=== PATIENT | male | born 1975 | race Caucasian/White ===

== ENCOUNTER 2017-02-02 06:28 | Emergency (ER) | payer OTHER ==
[2017-02-02 06:37] VITALS: TEMP 97.6; BMI 57.1
--- NOTE | 2017-02-02 07:01 | PDOC ---
History of Present Illness - General Chief Complaint: Rectal Bleed Stated Complaint: RECTAL BLEEDING ALCOHOL INTOX Time Seen by Provider: 02/02/17 06:52 - History of Present Illness Initial Comments: 02/02/17 06:56 Brought in by , intoxicated, c/o rectal bleeding. left prior to my exam. Patient poor historian. Admits to etoh use. HAs had colonoscopy before. Unable to provide details. pmh: alcoholism fhx: noncontrib OE NAD no diaphoresis nonicteric no facial trauma neck nontender RRR cta abd nontender rectal-dried blood + internal hemorrhoid no exteremity tenderness a.p acute intoxication LGIB check labs observe in ED until sober Past History - Past Medical History Allergies/Adverse Reactions: Allergies Allergy/AdvReac Type Severity Reaction Status Date / Time No Known Allergies Allergy Verified 02/02/17 06:30 Home Medications: Ambulatory Orders Ferrous Sulfate [Feosol] 325 mg PO TIDCM #90 ud 11/12/15 Anemia: Yes COPD: No GI Disorders: Yes (gi bleeding) - Suicide/Smoking/Psychosocial Hx Smoking History: Former smoker Have you smoked in the past 12 months: No If you are a former smoker, when did you quit?: 2006 Information on smoking cessation initiated: No Hx Alcohol Use: Yes (DAILY) Drug/Substance Use Hx: No Substance Use Type: Alcohol Hx Substance Use Treatment: No *Physical Exam - Vital Signs Last Vital Signs Temp Pulse Resp BP Pulse Ox 97.6 F 109 H 18 131/92 98 02/02/17 06:32 02/02/17 06:32 02/02/17 06:32 02/02/17 06:32 02/02/17 06:32 *DC/Admit/Observation/Transfer Diagnosis at time of Disposition: Alcoholism - Discharge Dispostion Condition at time of disposition: Stable - Referrals Referrals: Juan Alvarado MD [Primary Care Provider] - - Patient Instructions - Post Discharge Activity
[2017-02-02 07:38] LABS: ALBUMIN 4.8 g/dl (3.5-5.0); ALK PHOS 112 U/L (32-92); ANION GAP 14 (8-16); BILIRUBIN,TOTAL 0.5 mg/dl (0.2-1.0); CALCIUM 9.1 mg/dl (8.4-10.2); CO2 29 mmol/L (22-28); CREATININE 0.6 mg/dl (0.6-1.3); GLUCOSE,RANDOM 114 mg/dl (74-106); SGOT/AST 157 U/L (10-42); SGPT/ALT 147 U/L (10-40); TOT PROT 8.9 g/dl (6.4-8.3)
[2017-02-02 08:02] LABS: MCH 22.6 pg (25.7-33.7); MCHC 30.8 g/dl (32.0-35.9); MEAN CELL VOLUME 73.4 fl (80-96); MEAN PLT VOLUME 7.9 fl (7.5-11.1); PLATELET COUNT 531 K/MM3 (134-434); RDW 23.1 % (11.9-15.9); WHITE BLOOD COUNT 6.1 K/mm3 (4.0-10.8)
[2017-02-02 08:26] LABS: INR 1.21 (0.82-1.09); PROTHROMBIN TIME (PATIENT) 13.5 SEC (10.2-13.0)
[2017-02-02 13:17] VITALS: BP 129/64; PULSE 98
--- NOTE | 2017-02-02 13:20 | PDOC ---
*Physical Exam - Vital Signs Last Vital Signs Temp Pulse Resp BP Pulse Ox 97.6 F 82 18 115/75 98 02/02/17 06:32 02/02/17 09:25 02/02/17 06:32 02/02/17 09:25 02/02/17 06:32 ED Treatment Course - LABORATORY CBC & Chemistry Diagram: 02/02/17 07:00 02/02/17 07:00 - ADDITIONAL ORDERS Additional order review: Laboratory Results 02/02/17 02/02/17 02/02/17 07:30 07:30 07:00 PT with INR 13.5 H INR 1.21 Sodium Potassium Chloride Carbon Dioxide Anion Gap BUN Creatinine Creat Clearance w eGFR Random Glucose Calcium Total Bilirubin AST ALT Alkaline Phosphatase Total Protein Albumin Alcohol, Quantitative 453.4 H* Blood Type Cancelled Antibody Screen Cancelled Spec Expiration Date Cancelled 02/02/17 07:00 PT with INR INR Sodium 143 Potassium 3.5 Chloride 100 Carbon Dioxide 29 H D Anion Gap 14 BUN 8 D Creatinine 0.6 Creat Clearance w eGFR > 60 Random Glucose 114 H Calcium 9.1 Total Bilirubin 0.5 D AST 157 H ALT 147 H D Alkaline Phosphatase 112 H Total Protein 8.9 H D Albumin 4.8 D Alcohol, Quantitative Blood Type Antibody Screen Spec Expiration Date 02/02/17 07:00 RBC 4.92 D MCV 73.4 L MCHC 30.8 L RDW 23.1 H MPV 7.9 Neutrophils % No Result Required. Lymphocytes % No Result Required. Medical Decision Making - Medical Decision Making 02/02/17 13:09 Sign-out received from outgoing Emergency Physician Dr. Baig Pt interviewed and examined Ancillary studies reviewed Case discussed in detail with oncoming Emergency Physician including history, physical exam and ancillary studies. Vital Signs Temp Pulse Resp BP Pulse Ox 97.6 F 82 18 115/75 98 02/02/17 06:32 02/02/17 09:25 02/02/17 06:32 02/02/17 09:25 02/02/17 06:32 CBC, BMP 02/02/17 07:00 02/02/17 07:00 CMP Sodium 143 mmol/L (136-145) 02/02/17 07:00 Potassium 3.5 mmol/L (3.5-5.1) 02/02/17 07:00 Chloride 100 mmol/L (98-107) 02/02/17 07:00 Carbon Dioxide 29 mmol/L (22-28) H D 02/02/17 07:00 Anion Gap 14 (8-16) 02/02/17 07:00 BUN 8 mg/dl (7-18) D 02/02/17 07:00 Creatinine 0.6 mg/dl (0.6-1.3) 02/02/17 07:00 Creat Clearance w eGFR > 60 (>60) 02/02/17 07:00 Random Glucose 114 mg/dl (74-106) H 02/02/17 07:00 Calcium 9.1 mg/dl (8.4-10.2) 02/02/17 07:00 Total Bilirubin 0.5 mg/dl (0.2-1.0) D 02/02/17 07:00 AST 157 U/L (10-42) H 02/02/17 07:00 ALT 147 U/L (10-40) H D 02/02/17 07:00 Alkaline Phosphatase 112 U/L (32-92) H 02/02/17 07:00 Total Protein 8.9 g/dl (6.4-8.3) H D 02/02/17 07:00 Albumin 4.8 g/dl (3.5-5.0) D 02/02/17 07:00 I received signout from this patient Dr. Baig for patient was seen in the ED for rectal bleeding. Noted to have hemorrhoids at that time. Patient had drank significantly with elevated alcohol level 450s. Patient has been observed for approximately 7 hours. Was signed out patient likely with internal hemorrhoids. I spoke to the patient when he was sober and he states that yesterday night he has had a bowel movement with blood in it area he has had prior blood chest fusion setting of GI bleeds. He's had years of GI bleeding in the past and had seen Dr. Alvarado. 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 Alvarado reported the patient had a colonoscopy and endoscopy 2014. I had updated the doctor on the situation of the patient. The patient is now ambulatory without difficulty. I advised patient that he should follow-up with his antique dealer. He is requesting a new primary care physician which I will give him one. I'll prescribe him Colace and Preparation H and sitz bath. I discussed the physical exam findings, ancillary test results and final diagnoses with the patient. I answered all of the patient's questions. The patient was satisfied with the care received and felt comfortable with the discharge plan and treatment plan. The patient will call their primary care physician within 24 hours to arrange follow-up and will return to the Emergency Department with any new, persistant or worsening symptoms. *DC/Admit/Observation/Transfer Diagnosis at time of Disposition: Alcoholism, Rectal bleeding - Discharge Dispostion Disposition: HOME Condition at time of disposition: Stable Admit: No - Prescriptions Prescriptions: Docusate Sodium [Colace -] 100 mg PO TID #21 capsule Phenyleph/Mineral Oil/Petrolat [Preparation H Ointment] 1 applic RC BID #1 oint - Referrals Referrals: Juan Alvarado MD [Staff Physician] - Robert Patel MD [Staff Physician] - - Patient Instructions Printed Discharge Instructions: DI for Hemorrhoids, DI for Rectal Bleeding Additional Instructions: Please follow up with your doctors. Call to schedule an appointment. Your hemoglobin levels are 11.1 today. - Post Discharge Activity Forms/Work/School Notes: Back to Work
[2017-02-02 15:32] LABS: ANISOCYTOSIS 3+; HYPOCHROMIA 1+; MICROCYTOSIS 1+
[2017-02-02 15:33] LABS: MACROCYTOSIS 1+; OVALOCYTE 1+; PLATELET COMMENTS RARE GIANT PLTS; PLATELET ESTIMATE MOD INCREASED; SPHEROCYTE 1+; TARGET CELLS 1+; TEAR DROP CELLS 1+
[2017-02-03 18:39] LABS: REACTIVE LYMPHOCYTES 28 % (0-80)
== END 2017-02-02 13:25 | disposition home or self-care (01) ==
LOC: SUPCPDRO 06:28 → FER 06:28
DX: F10.220 Alcohol dependence with intoxication, uncomplicated (principal); Y90.8 Blood alcohol level of 240 mg/100 ml or more; K64.8 Other hemorrhoids
CPT/HCPCS: 36415; 80053; 80307; 85025; 85610; 99282-25

== ENCOUNTER 2017-06-17 11:52 | Inpatient (IN) | payer OTHER ==
[2017-06-17 13:36] VITALS: BMI 29.2
--- NOTE | 2017-06-17 14:20 | HP ---
CIWA Score - CIWA Score Nausea/Vomitin-No Nausea/No Vomiting Muscle Tremors: 5 Anxiety: 4-Mod. Anxious/Guarded Agitation: 5 Paroxysmal Sweats: 1-Minimal Palms Moist Orientation: 0-Oriented Tacttile Disturbances: 2-Mild Itch/Numbness/Burn Auditory Disturbances: 0-None Visual Disturbances: 0-None Headache: 2-Mild CIWA-Ar Total Score: 19 Admission ROS BHS - HPI Chief Complaint: withdrawal sx Allergies/Adverse Reactions: Allergies Allergy/AdvReac Type Severity Reaction Status Date / Time No Known Allergies Allergy Verified 06/17/17 14:17 History of Present Illness: 41 years old male with long history of alcohol dependence has gerd gi ulcer anemia and depression admitted to detox Exam Limitations: No Limitations - Ebola screening Have you traveled outside of the country in the last 21 days: No Have you had contact with anyone from an Ebola affected area: No Have you been sick,other than usual withdrawal symptoms: No Do you have a fever: No - Review of Systems Constitutional: Changes in sleep, Weight Stable EENT: reports: Blurred Vision (eye glasses) Respiratory: reports: No Symptoms reported Cardiac: reports: No Symptoms Reported GI: reports: Diarrhea (early today), Nausea, Poor Fluid Intake, Indigestion, Abdominal cramping : reports: No Symptoms Reported Musculoskeletal: reports: No Symptoms Reported Integumentary: reports: No Symptoms Reported Neuro: reports: Tremors Endocrine: reports: No Symptoms Reported Hematology: reports: No Symptoms Reported Psychiatric: reports: Judgement Intact, Orientated x3, Depressed Other Systems: Reviewed and Negative Patient History - Patient Medical History Hx Anemia: Yes Hx Asthma: No Hx Chronic Obstructive Pulmonary Disease (COPD): No Hx Cancer: No Hx Cardiac Disorders: No Hx Congestive Heart Failure: No Hx Hypertension: No Hx Hypercholesterolemia: No Hx Pacemaker: No HX Cerebrovascular Accident: No Hx Seizures: No Hx Dementia: No Hx Diabetes: No Hx Gastrointestinal Disorders: Yes (gi bleeding, gastritis, hemmorhoids, colonic polyps) Hx Liver Disease: No Hx Genitourinary Disorders: No Hx Sexually Transmitted Disorders: No Hx Renal Disease (ESRD): No Hx Thyroid Disease: No Hx Human Immunodeficiency Virus (HIV): No Hx Hepatitis C: No Hx Depression: Yes Hx Suicide Attempt: No Hx Bipolar Disorder: No Hx Schizophrenia: No - Patient Surgical History Past Surgical History: No - Smoking Cessation Smoking history: Former smoker Have you smoked in the past 12 months: No If you are a former smoker, when did you quit?: 2006 Hx Chewing Tobacco Use: No Initiated information on smoking cessation: No - Substance & Tx. History Hx Alcohol Use: Yes Hx Substance Use: No Substance Use Type: Alcohol Hx Substance Use Treatment: No (first detox) - Substances Abused Alcohol Route: Oral Frequency: Daily Amount used: mara ulloa Age of first use: 17 Date of Last Use: 06/17/17 Family Disease History - Family Disease History Family Disease History: Diabetes: Father (), Other: Father Admission Physical Exam [facility] - Vital Signs Vital Signs: Vital Signs - 24 hr 06/17/17 13:35 Temperature 98.7 F Pulse Rate 84 Respiratory 18 Rate Blood Pressure 127/73 - Physical General Appearance: Yes: Nourished, Appropriately Dressed, Moderate Distress, Tremorous, Irritable, Sweating, Anxious HEENTM: Yes: Hearing grossly Normal, Normal ENT Inspection, Normocephalic, Normal Voice, Other (eye glasses) Respiratory: Yes: Chest Non-Tender, Lungs Clear, Normal Breath Sounds, No Respiratory Distress, No Accessory Muscle Use Neck: Yes: Supple, Trachea in good position Breast: Yes: Breasts Symetrical Cardiology: Yes: Regular Rhythm, Regular Rate, S1, S2 Abdominal: Yes: Non Tender, Soft, Increased Bowel Sounds Genitourinary: Yes: Within Normal Limits Back: Yes: Normal Inspection Musculoskeletal: Yes: full range of Motion, Gait Steady Extremities: Yes: Normal Inspection, Normal Range of Motion, Non-Tender, Tremors Neurological: Yes: Fully Oriented, Alert, Motor Strength 5/5, Normal Response, Depressed Affect Integumentary: Yes: Warm Lymphatic: Yes: Within Normal Limits - Diagnostic (1) History of gingival bleeding Current Visit: Yes Status: Chronic (2) Alcohol dependence with uncomplicated withdrawal Current Visit: Yes Status: Acute (3) Anemia Current Visit: No Status: Chronic Qualifiers: Anemia type: iron deficiency Iron deficiency anemia type: inadequate dietary iron intake Qualified Code(s): D50.8 - Other iron deficiency anemias Comment: lab pending (4) Depression (emotion) Current Visit: Yes Status: Suspected Qualifiers: Depression Type: dysthymia Qualified Code(s): F34.1 - Dysthymic disorder Cleared for Admission [facility] - Detox or Rehab [facility] Level of Care: Medically Managed Detox Regimen/Protocol: Librium [facility] Breath Alcohol Content Breath Alcohol Content: 0.056 Urine Drug Screen - Control Is Test Valid: Yes - Results Drug Screen Negative: No Urine Drug Screen Results: BZO-Benzodiazepines
[2017-06-17] MEDS ORDERED: LOPERAMIDE HCL 2 MG CAPSULE PO PRN (14:34)
[2017-06-17] MEDS ORDERED: MENTHOL/PHENOL 1 EACH UD MM PRN (14:34)
[2017-06-17] MEDS ORDERED: chlordiazePOXIDE HCL 25 MG CAPSULE PO PRN (14:34)
[2017-06-17] MEDS ORDERED: P-EPHED 60MG/TRIPROLIDI 2.5MG TABLET PO PRN (14:34)
[2017-06-17] MEDS ORDERED: MAG HYDROX/AL HYDROX/SIMETH 30 ML UNIT-DOSE CUP PO PRN (14:34)
[2017-06-17] MEDS ORDERED: MAGNESIUM CITRATE 300 ML BOTTLE PO PRN (14:34)
[2017-06-17] MEDS ORDERED: guaiFENesin/D-METHORPHAN HB 10 ML UNIT-DOSE CUPS PO PRN (14:34)
[2017-06-17] MEDS ORDERED: MAGNESIUM HYDROX 2400MG/30ML ORAL SUSPENSION 30 ML CUP PO PRN (14:34)
[2017-06-17] MEDS ORDERED: chlordiazePOXIDE HCL 25 MG CAPSULE PO ONE (16:15)
--- NOTE | 2017-06-17 17:26 | CONSULT ---
[facility] Psychiatric Consult - Data Date of interview: 06/17/17 Admission source: [facility] Identifying data: First admission to [facility] for this 41 y/o [place]-born male seeking detox treatment on for alcohol dependence.Patient is ,a father of one,domiciled,currrently unemployed and supported by his spouse. Substance Abuse History: Confirmed by patient in this session.Details in current [facility] report : Smoking history: Former smoker. Have you smoked in the past 12 months: No. If you are a former smoker, when did you quit?: 2006. Hx Chewing Tobacco Use: No. Initiated information on smoking cessation: No. - Substance & Tx. History. Hx Alcohol Use: Yes. Hx Substance Use: No. Substance Use Type: Alcohol. Hx Substance Use Treatment: No (first detox). - Substances Abused. Alcohol. Route: Oral. Frequency: Daily. Amount used: pint voka. Age of first use: 17. Date of Last Use: 06/17/17 Medical History: Anemia,GERD,colonic polyps,gastritis and hemorrhoids. Psychiatric History: Patient denies history of mental illness or psychiatric hospitalizations.No prior exposure to psychotropic medications. Physical/Sexual Abuse/Trauma History: Patient denies history of abuse.Distressed by his recent arrest (for alcohol intoxication).Occurred on 06/16. Additional Comment: Urine Drug Screen Results: BZO-Benzodiazepines.Noted. Mental Status Exam - Mental Status Exam Alert and Oriented to: Time, Place, Person Cognitive Function: Good Patient Appearance: Well Groomed (short stature) Mood: Nervous, Withdrawn, Anxious Affect: Mood Congruent, Constricted Patient Behavior: Fatigued, Appropriate, Cooperative Speech Pattern: Clear (bilingual) Voice Loudness: Normal Thought Process: Goal Oriented Thought Disorder: Not Present Hallucinations: Denies Suicidal Ideation: Denies Homicidal Ideation: Denies Insight/Judgement: Poor Sleep: Fair Appetite: Good Muscle strength/Tone: Normal Gait/Station: Normal Psychiatric Findings - Problem List ([place] 1, 2,3) (1) Alcohol dependence with uncomplicated withdrawal Current Visit: Yes Status: Acute - Initial Treatment Plan Initial Treatment Plan: Psychoeducation.Orientation to unit.Detoxification initiated.Observation.
[2017-06-17] MEDS: ACETAMINOPHEN 325 MG TABLET (FP) PO PRN (17:40)
[2017-06-17] MEDS ORDERED: MELATONIN 5 MG TABLETS PO PRN (22:00)
[2017-06-17] MEDS: RANITIDINE HCL 150 MG TABLET (FP) PO SCH (22:21)
[2017-06-17] MEDS: chlordiazePOXIDE HCL 25 MG CAPSULE PO SCH (22:21)
[2017-06-17] MEDS: THIAMINE HCL 100 MG TABLET (FP) PO SCH (22:21)
[2017-06-17 22:54] LABS: URINE APPEARANCE CLEAR; URINE BILIRUBIN NEGATIVE (<2.0 mg/dL); URINE BLOOD NEGATIVE (NEGATIVE); URINE COLOR YELLOW; URINE GLUCOSE (UA) NEGATIVE (NEGATIVE); URINE KETONE TRACE (NEGATIVE); URINE LEUK ESTERASE NEGATIVE (NEGATIVE); URINE NITRITE NEGATIVE (NEGATIVE); URINE PROTEIN 1+ (NEGATIVE); URINE UROBILINOGEN 4.0 E.U/dl mg/dL (0.2-1.0)
[2017-06-17 22:55] LABS: URINE BACTERIA RARE /hpf (NONE SEEN); URINE MUCUS FEW
[2017-06-18] MEDS: chlordiazePOXIDE HCL 25 MG CAPSULE PO SCH ×4 (05:05→22:14)
[2017-06-18] MEDS: ACETAMINOPHEN 325 MG TABLET (FP) PO PRN ×2 (05:06→10:17)
[2017-06-18] MEDS: PRENATAL VITAMINS W/ FOLIC ACID TABLET (FP) PO SCH (10:14)
[2017-06-18] MEDS: RANITIDINE HCL 150 MG TABLET (FP) PO SCH ×2 (10:14→22:13)
[2017-06-18 10:18] LABS: HEMATOCRIT 38.5 % (35.4-49); HEMOGLOBIN 12.4 GM/dL (11.7-16.9); MCH 26.4 pg (25.7-33.7); MCHC 32.3 g/dl (32.0-35.9); MEAN CELL VOLUME 81.6 fl (80-96); MEAN PLT VOLUME 8.4 fl (7.5-11.1); PLATELET COUNT 367 K/MM3 (134-434); RBC 4.72 M/mm3 (4.00-5.60); RDW 16.6 % (11.9-15.9); WHITE BLOOD COUNT 4.2 K/mm3 (4.0-10.0)
[2017-06-18 11:00] LABS: ALBUMIN 3.8 g/dl (3.4-5.0); ANION GAP 13 (8-16); BLOOD UREA NITROGEN 5 mg/dL (7-18); CALCIUM 8.9 mg/dL (8.5-10.1); CHLORIDE 100 mmol/L (98-107); CO2 27 mmol/L (21-32); GLUCOSE,RANDOM 91 mg/dL (74-106); POTASSIUM 4.2 mmol/L (3.5-5.1); SODIUM 140 mmol/L (136-145)
--- NOTE | 2017-06-18 11:07 | EKG ---
Test Reason : Blood Pressure : / mmHG Vent. Rate : 070 BPM Atrial Rate : 070 BPM P-R Int : 130 ms QRS Dur : 096 ms QT Int : 430 ms P-R-T Axes : 034 012 018 degrees QTc Int : 464 ms NORMAL SINUS RHYTHM NORMAL ECG WHEN COMPARED WITH ECG OF 17-JUN-2017 17:53, NO SIGNIFICANT CHANGE WAS FOUND Confirmed by EAN DASILVA MD ([id number]) on 06/18/2017 11:07:14 AM Referred By: Confirmed By:EAN DASILVA MD
--- NOTE | 2017-06-18 11:08 | EKG ---
Test Reason : Blood Pressure : / mmHG Vent. Rate : 085 BPM Atrial Rate : 085 BPM P-R Int : 130 ms QRS Dur : 098 ms QT Int : 404 ms P-R-T Axes : 031 011 026 degrees QTc Int : 480 ms NORMAL SINUS RHYTHM MINIMAL VOLTAGE CRITERIA FOR LVH, MAY BE NORMAL VARIANT PROLONGED QT ABNORMAL ECG NO PREVIOUS ECGS AVAILABLE Confirmed by EAN DASILVA MD ([id number]) on 06/18/2017 11:08:26 AM Referred By: Confirmed By:EAN DASILVA MD
[2017-06-18 11:11] LABS: ALK PHOS 105 U/L (45-117); CREATININE 0.6 mg/dL (0.7-1.3); SGOT/AST 61 U/L (15-37); SGPT/ALT 79 U/L (12-78); TOT PROT 7.8 g/dl (6.4-8.2)
--- NOTE | 2017-06-18 14:59 | PN ---
S CIWA - CIWA Score Nausea/Vomitin-No Nausea/No Vomiting Muscle Tremors: 4-Moderate,w/Arms Extend Anxiety: 4-Mod. Anxious/Guarded Agitation: 1-Slight > Activity Paroxysmal Sweats: 3 Orientation: 0-Oriented Tacttile Disturbances: 0-None Auditory Disturbances: 2-Mild Harshness/Frighten Visual Disturbances: 0-None Headache: 3-Moderate CIWA-Ar Total Score: 17 BHS Progress Note (SOAP) Subjective: Sweating, Tremors, Anxious, H/A. Objective: PATIENT A & O X 3, OBSERVED AMBULATING ON UNIT. NO ACUTE DISTRESS. 06/18/17 14:57 Vital Signs Temperature 97.2 F L 06/18/17 13:44 Pulse Rate 62 06/18/17 13:44 Respiratory Rate 18 06/18/17 13:44 Blood Pressure 112/74 06/18/17 13:44 O2 Sat by Pulse Oximetry (%) Laboratory Tests 06/17/17 06/18/17 06/18/17 22:30 07:00 07:00 WBC 4.2 D RBC 4.72 D Hgb 12.4 D Hct 38.5 D MCV 81.6 MCH 26.4 D MCHC 32.3 RDW 16.6 H D Plt Count 367 D MPV 8.4 Sodium 140 Potassium 4.2 Chloride 100 Carbon Dioxide 27 Anion Gap 13 BUN 5 L Creatinine 0.6 L Creat Clearance w eGFR > 60 Random Glucose 91 Calcium 8.9 Total Bilirubin 1.0 AST 61 H D ALT 79 H D Alkaline Phosphatase 105 Total Protein 7.8 Albumin 3.8 D Urine Color Yellow Urine Appearance Clear Urine pH 7.0 Ur Specific [place] 1.023 Urine Protein 1+ H Urine Glucose (UA) Negative Urine Ketones Trace H Urine Blood Negative Urine Nitrite Negative Urine Bilirubin Negative Urine Urobilinogen 4.0 e.u/dl Ur Leukocyte Esterase Negative Urine WBC (Auto) None Urine RBC (Auto) <1 Urine Bacteria Rare Urine Mucus Few RPR Titer 06/18/17 07:00 WBC RBC Hgb Hct MCV MCH MCHC RDW Plt Count MPV Sodium Potassium Chloride Carbon Dioxide Anion Gap BUN Creatinine Creat Clearance w eGFR Random Glucose Calcium Total Bilirubin AST ALT Alkaline Phosphatase Total Protein Albumin Urine Color Urine Appearance Urine pH Ur Specific [place] Urine Protein Urine Glucose (UA) Urine Ketones Urine Blood Urine Nitrite Urine Bilirubin Urine Urobilinogen Ur Leukocyte Esterase Urine WBC (Auto) Urine RBC (Auto) Urine Bacteria Urine Mucus RPR Titer Nonreactive LABS NOTED. Assessment: 06/18/17 14:58 WITHDRAWAL SYMPTOMS. Plan: CONTINUE DETOX. INCREASE DAILY PO FLUID INTAKE.
[2017-06-18] MEDS: THIAMINE HCL 100 MG TABLET (FP) PO SCH (22:13)
[2017-06-18] MEDS: BACITRACIN 0.9 GM PACKET TP SCH (22:13)
[2017-06-19] MEDS: chlordiazePOXIDE HCL 25 MG CAPSULE PO SCH ×3 (05:20→17:26)
[2017-06-19] MEDS: BACITRACIN 0.9 GM PACKET TP SCH ×3 (10:08→22:10)
[2017-06-19] MEDS: PRENATAL VITAMINS W/ FOLIC ACID TABLET (FP) PO SCH (10:08)
[2017-06-19] MEDS: RANITIDINE HCL 150 MG TABLET (FP) PO SCH ×2 (10:08→22:10)
--- NOTE | 2017-06-19 11:17 | PN ---
[facility] CIWA - CIWA Score Nausea/Vomitin-No Nausea/No Vomiting Muscle Tremors: 4-Moderate,w/Arms Extend Anxiety: 4-Mod. Anxious/Guarded Agitation: 4-Moderately Restless Paroxysmal Sweats: 1-Minimal Palms Moist Orientation: 0-Oriented Tacttile Disturbances: 3-Moderate Itch/Numb/Burn Auditory Disturbances: 0-None Visual Disturbances: 0-None Headache: 0-None Present CIWA-Ar Total Score: 16 S Progress Note (SOAP) Subjective: ANXIETY,SWEATS,TREMORS,OOB WITH STEADY GAIT. Objective: 06/19/17 11:16 Vital Signs Temperature 96.1 F L 06/19/17 09:11 Pulse Rate 74 06/19/17 09:11 Respiratory Rate 18 06/19/17 09:11 Blood Pressure 107/73 06/19/17 09:11 O2 Sat by Pulse Oximetry (%) Laboratory Last Values WBC 4.2 K/mm3 (4.0-10.0) D 06/18/17 07:00 RBC 4.72 M/mm3 (4.00-5.60) D 06/18/17 07:00 Hgb 12.4 GM/dL (11.7-16.9) D 06/18/17 07:00 Hct 38.5 % (35.4-49) D 06/18/17 07:00 MCV 81.6 fl (80-96) 06/18/17 07:00 MCH 26.4 pg (25.7-33.7) D 06/18/17 07:00 MCHC 32.3 g/dl (32.0-35.9) 06/18/17 07:00 RDW 16.6 % (11.9-15.9) H D 06/18/17 07:00 Plt Count 367 K/MM3 (134-434) D 06/18/17 07:00 MPV 8.4 fl (7.5-11.1) 06/18/17 07:00 Sodium 140 mmol/L (136-145) 06/18/17 07:00 Potassium 4.2 mmol/L (3.5-5.1) 06/18/17 07:00 Chloride 100 mmol/L (98-107) 06/18/17 07:00 Carbon Dioxide 27 mmol/L (21-32) 06/18/17 07:00 Anion Gap 13 (8-16) 06/18/17 07:00 BUN 5 mg/dL (7-18) L 06/18/17 07:00 Creatinine 0.6 mg/dL (0.7-1.3) L 06/18/17 07:00 Creat Clearance w eGFR > 60 (>60) 06/18/17 07:00 Random Glucose 91 mg/dL (74-106) 06/18/17 07:00 Calcium 8.9 mg/dL (8.5-10.1) 06/18/17 07:00 Total Bilirubin 1.0 mg/dL (0.2-1.0) 06/18/17 07:00 AST 61 U/L (15-37) H D 06/18/17 07:00 ALT 79 U/L (12-78) H D 06/18/17 07:00 Alkaline Phosphatase 105 U/L (45-117) 06/18/17 07:00 Total Protein 7.8 g/dl (6.4-8.2) 06/18/17 07:00 Albumin 3.8 g/dl (3.4-5.0) D 06/18/17 07:00 Urine Color Yellow 06/17/17 22:30 Urine Appearance Clear 06/17/17 22:30 Urine pH 7.0 (5.0-8.0) 06/17/17 22:30 Ur Specific [place] 1.023 (1.001-1.035) 06/17/17 22:30 Urine Protein 1+ (NEGATIVE) H 06/17/17 22:30 Urine Glucose (UA) Negative (NEGATIVE) 06/17/17 22:30 Urine Ketones Trace (NEGATIVE) H 06/17/17 22:30 Urine Blood Negative (NEGATIVE) 06/17/17 22:30 Urine Nitrite Negative (NEGATIVE) 06/17/17 22:30 Urine Bilirubin Negative (<2.0 mg/dL) 06/17/17 22:30 Urine Urobilinogen 4.0 e.u/dl mg/dL (0.2-1.0) 06/17/17 22:30 Ur Leukocyte Esterase Negative (NEGATIVE) 06/17/17 22:30 Urine WBC (Auto) None /hpf (3-5) 06/17/17 22:30 Urine RBC (Auto) <1 /hpf (0-3) 06/17/17 22:30 Urine Bacteria Rare /hpf (NONE SEEN) 06/17/17 22:30 Urine Mucus Few 06/17/17 22:30 RPR Titer Nonreactive (NONREACTIVE) 06/18/17 07:00 Assessment: 06/19/17 11:16 WITHDRAWAL SX Plan: CONTINUE DETOX
[2017-06-19] MEDS: THIAMINE HCL 100 MG TABLET (FP) PO SCH (22:10)
[2017-06-19] MEDS: chlordiazePOXIDE 5 MG CAPSULE PO SCH (22:10)
[2017-06-19] MEDS: ACETAMINOPHEN 325 MG TABLET (FP) PO PRN (22:12)
[2017-06-20] MEDS: chlordiazePOXIDE 5 MG CAPSULE PO SCH ×3 (05:35→17:29)
[2017-06-20] MEDS: ACETAMINOPHEN 325 MG TABLET (FP) PO PRN ×2 (10:05→22:15)
[2017-06-20] MEDS: RANITIDINE HCL 150 MG TABLET (FP) PO SCH ×2 (10:26→22:14)
[2017-06-20] MEDS: BACITRACIN 0.9 GM PACKET TP SCH ×2 (10:26→22:14)
[2017-06-20] MEDS: PRENATAL VITAMINS W/ FOLIC ACID TABLET (FP) PO SCH (10:26)
--- NOTE | 2017-06-20 12:40 | PN ---
BHS Progress Note (SOAP) Subjective: Anxious, Sweating. Objective: PATIENT A & O X 3, OBSERVED AMBULATING ON UNIT. NO ACUTE DISTRESS. 06/20/17 12:41 Vital Signs Temperature 96.8 F L 06/20/17 09:27 Pulse Rate 65 06/20/17 09:27 Respiratory Rate 18 06/20/17 09:27 Blood Pressure 113/74 06/20/17 09:27 O2 Sat by Pulse Oximetry (%) Laboratory Tests 06/17/17 06/18/17 06/18/17 22:30 07:00 07:00 WBC 4.2 D RBC 4.72 D Hgb 12.4 D Hct 38.5 D MCV 81.6 MCH 26.4 D MCHC 32.3 RDW 16.6 H D Plt Count 367 D MPV 8.4 Sodium 140 Potassium 4.2 Chloride 100 Carbon Dioxide 27 Anion Gap 13 BUN 5 L Creatinine 0.6 L Creat Clearance w eGFR > 60 Random Glucose 91 Calcium 8.9 Total Bilirubin 1.0 AST 61 H D ALT 79 H D Alkaline Phosphatase 105 Total Protein 7.8 Albumin 3.8 D Urine Color Yellow Urine Appearance Clear Urine pH 7.0 Ur Specific [place] 1.023 Urine Protein 1+ H Urine Glucose (UA) Negative Urine Ketones Trace H Urine Blood Negative Urine Nitrite Negative Urine Bilirubin Negative Urine Urobilinogen 4.0 e.u/dl Ur Leukocyte Esterase Negative Urine WBC (Auto) None Urine RBC (Auto) <1 Urine Bacteria Rare Urine Mucus Few RPR Titer 06/18/17 07:00 WBC RBC Hgb Hct MCV MCH MCHC RDW Plt Count MPV Sodium Potassium Chloride Carbon Dioxide Anion Gap BUN Creatinine Creat Clearance w eGFR Random Glucose Calcium Total Bilirubin AST ALT Alkaline Phosphatase Total Protein Albumin Urine Color Urine Appearance Urine pH Ur Specific [place] Urine Protein Urine Glucose (UA) Urine Ketones Urine Blood Urine Nitrite Urine Bilirubin Urine Urobilinogen Ur Leukocyte Esterase Urine WBC (Auto) Urine RBC (Auto) Urine Bacteria Urine Mucus RPR Titer Nonreactive LABS NOTED. Assessment: 06/20/17 12:41 WITHDRAWAL SYMPTOMS. Plan: CONTINUE DETOX. INCREASE DAILY PO FLUID INTAKE.
[2017-06-20] MEDS: chlordiazePOXIDE HCL 10 MG CAPSULE PO SCH (22:14)
[2017-06-20] MEDS: THIAMINE HCL 100 MG TABLET (FP) PO SCH (22:14)
[2017-06-21] MEDS: chlordiazePOXIDE HCL 10 MG CAPSULE PO SCH (05:32)
[2017-06-21 09:15] VITALS: BP 107/66; PULSE 76; TEMP 97.4
--- NOTE | 2017-06-21 11:39 | DS ---
[facility] Detox Discharge Summary Admission Date: 06/17/17 - History Present History: Alcohol Dependence Pertinent Past History: Anemia Gerd Gastritis (bleeding ulcer) - Physical Exam Results Vital Signs: Vital Signs Temperature 97.4 F L 06/21/17 09:14 Pulse Rate 76 06/21/17 09:14 Respiratory Rate 18 06/21/17 09:14 Blood Pressure 107/66 06/21/17 09:14 O2 Sat by Pulse Oximetry (%) Pertinent Admission Physical Exam Findings: Withdrawal symptoms Laboratory Tests 06/17/17 06/18/17 06/18/17 22:30 07:00 07:00 WBC 4.2 D RBC 4.72 D Hgb 12.4 D Hct 38.5 D MCV 81.6 MCH 26.4 D MCHC 32.3 RDW 16.6 H D Plt Count 367 D MPV 8.4 Sodium 140 Potassium 4.2 Chloride 100 Carbon Dioxide 27 Anion Gap 13 BUN 5 L Creatinine 0.6 L Creat Clearance w eGFR > 60 Random Glucose 91 Calcium 8.9 Total Bilirubin 1.0 AST 61 H D ALT 79 H D Alkaline Phosphatase 105 Total Protein 7.8 Albumin 3.8 D Urine Color Yellow Urine Appearance Clear Urine pH 7.0 Ur Specific [place] 1.023 Urine Protein 1+ H Urine Glucose (UA) Negative Urine Ketones Trace H Urine Blood Negative Urine Nitrite Negative Urine Bilirubin Negative Urine Urobilinogen 4.0 e.u/dl Ur Leukocyte Esterase Negative Urine WBC (Auto) None Urine RBC (Auto) <1 Urine Bacteria Rare Urine Mucus Few RPR Titer 06/18/17 07:00 WBC RBC Hgb Hct MCV MCH MCHC RDW Plt Count MPV Sodium Potassium Chloride Carbon Dioxide Anion Gap BUN Creatinine Creat Clearance w eGFR Random Glucose Calcium Total Bilirubin AST ALT Alkaline Phosphatase Total Protein Albumin Urine Color Urine Appearance Urine pH Ur Specific [place] Urine Protein Urine Glucose (UA) Urine Ketones Urine Blood Urine Nitrite Urine Bilirubin Urine Urobilinogen Ur Leukocyte Esterase Urine WBC (Auto) Urine RBC (Auto) Urine Bacteria Urine Mucus RPR Titer Nonreactive Labs noted - Treatment Hospital Course: Detox Protocol Followed, Detoxed Safely, Responded well, Discharged Condition Good - Medication Discharge Medications: Ambulatory Orders Ferrous Sulfate [Feosol] 325 mg PO DAILY 06/17/17 - Diagnosis (1) GERD (gastroesophageal reflux disease) Status: Chronic (2) Alcohol dependence with uncomplicated withdrawal Status: Acute (3) Gastritis, alcoholic Status: Chronic (4) Anemia Status: Chronic Qualifiers: Anemia type: iron deficiency Iron deficiency anemia type: inadequate dietary iron intake Qualified Code(s): D50.8 - Other iron deficiency anemias (5) Depression (emotion) Status: Chronic Qualifiers: Depression Type: dysthymia Qualified Code(s): F34.1 - Dysthymic disorder - AMA Did Patient Leave Against Medical Advice: No (Follow up with your PCP within 1- 2 weeks)
== END 2017-06-21 09:32 | disposition home or self-care (01) | DRG 897 ==
LOC: YASAS 11:52 → Y3N 16:00
PROVIDERS: ADMIT Internal Medicine; ATTEND Internal Medicine
PROC: HZ2ZZZZ Detoxification Services for Substance Abuse Treatment (ICD-10-PCS; principal; 2017-06-17)
DX: F10.230 Alcohol dependence with withdrawal, uncomplicated (principal); F34.1 Dysthymic disorder; D50.8 Other iron deficiency anemias; K29.20 Alcoholic gastritis without bleeding; K21.9 Gastro-esophageal reflux disease without esophagitis; K06.8 Other specified disorders of gingiva and edentulous alveolar ridge
CPT/HCPCS: 36415; 80053; 81003; 81015; 85027; 86593; 93005; 93010

== ENCOUNTER 2018-12-03 08:26 | Inpatient (IN) | payer OTHER ==
[2018-12-03 08:56] VITALS: BMI 28.8
--- NOTE | 2018-12-03 09:32 | HP ---
CIWA Score Nausea/Vomitin Muscle Tremors: 4-Moderate,w/Arms Extend Anxiety: 4-Mod. Anxious/Guarded Agitation: 3 Paroxysmal Sweats: 2 Orientation: 0-Oriented Tacttile Disturbances: 1-Very Mild Itch/Numbness Auditory Disturbances: 0-None Visual Disturbances: 0-None Headache: 4-Moderately Severe CIWA-Ar Total Score: 24 - Admission Criteria OASAS Guidelines: Admission for Medically Managed Detox: Requires at least one of the followin. CIWA greater than 12 2. Seizures within the past 24 hours 3. Delirium tremens within the past 24 hours 4. Hallucinations within the past 24 hours 5. Acute intervention needed for co occurring medical disorder 6. Acute intervention needed for co occurring psychiatric disorder 7. Severe withdrawal that cannot be handled at a lower level of care (continued vomiting, continued diarrhea, abnormal vital signs) requiring intravenous medication and/or fluids 8. Admission ROS BHS - HPI Allergies/Adverse Reactions: Allergies Allergy/AdvReac Type Severity Reaction Status Date / Time No Known Allergies Allergy Verified 12/03/18 08:46 History of Present Illness: pt here requesting detox from etoh use , reports relapse since past Thursday , prior sobriety x 11 mo , first age of use 18 , reports he was drinking 3 l vodka daily , latest use this morning , + + blackout , claims he was scratching himself , denies falls , denies injuries , current symptoms as above. States went to [facility] yesterday . PMHX : anemia PShx : colon polyps Psych : denies tobacco : denies ( quit 12 years ago ) denies i ilicits Exam Limitations: Clinical Condition - Ebola screening Have you traveled outside of the country in the last 21 days: No Have you had contact with anyone from an Ebola affected area: No Do you have a fever: No - Review of Systems Constitutional: Loss of Appetite, Changes in sleep EENT: reports: Other (glasses) Respiratory: reports: No Symptoms reported Cardiac: reports: No Symptoms Reported GI: reports: See HPI, Diarrhea, Nausea, Poor Appetite, Vomiting : reports: Other (hesitancy) Musculoskeletal: reports: No Symptoms Reported Integumentary: reports: Bruising, Other (leg and arm claims he was scratching himself) Neuro: reports: Headache, Tremors Endocrine: reports: No Symptoms Reported Hematology: reports: Anemia Psychiatric: reports: Orientated x3, Agitated, Anxious Patient History - Patient Medical History Hx Anemia: Yes Hx Asthma: No Hx Chronic Obstructive Pulmonary Disease (COPD): No Hx Cancer: No Hx Cardiac Disorders: No Hx Congestive Heart Failure: No Hx Hypertension: No Hx Hypercholesterolemia: No Hx Pacemaker: No HX Cerebrovascular Accident: No Hx Seizures: No Hx Dementia: No Hx Diabetes: No Hx Gastrointestinal Disorders: Yes (gi bleeding, gastritis, hemmorhoids, colonic polyps) Hx Liver Disease: No Hx Genitourinary Disorders: No Hx Sexually Transmitted Disorders: No Hx Renal Disease (ESRD): No Hx Thyroid Disease: No Hx Human Immunodeficiency Virus (HIV): No Hx Hepatitis C: No Hx Depression: Yes Hx Suicide Attempt: No Hx Bipolar Disorder: No Hx Schizophrenia: No - Patient Surgical History Past Surgical History: No Hx Neurologic Surgery: No Hx Cataract Extraction: No Hx Cardiac Surgery: No Hx Lung Surgery: No Hx Breast Surgery: No Hx Breast Biopsy: No Hx Abdominal Surgery: Yes (removal of polyps in 2016) Hx Appendectomy: No Hx Cholecystectomy: No Hx Genitourinary Surgery: No Hx Section: No Hx Orthopedic Surgery: No Anesthesia Reaction: No - PPD History Date: 06/19/17 - Smoking Cessation Smoking history: Never smoked Have you smoked in the past 12 months: No If you are a former smoker, when did you quit?: 2006 Hx Chewing Tobacco Use: No - Substances abused Alcohol Substance route: Oral Frequency: Daily Amount used: 3 Litres vodka Age of first use: 18 Date of last use: 12/02/18 Admission Physical Exam S - Vital Signs Vital Signs: Vital Signs - 24 hr 12/03/18 08:51 Temperature 97.2 F L Pulse Rate 111 H Respiratory 16 Rate Blood Pressure 146/85 - Physical General Appearance: Yes: Disheveled, Moderate Distress, Tremorous, Anxious HEENTM: Yes: EOMI, Hearing grossly Normal, Normal Voice Respiratory: Yes: Chest Non-Tender, Lungs Clear, Normal Breath Sounds, No Respiratory Distress, No Accessory Muscle Use Neck: Yes: No masses,lesions,Nodules, Trachea in good position Cardiology: Yes: Regular Rhythm, Regular Rate, S1, S2, Tachycardia Abdominal: Yes: Normal Bowel Sounds, Non Tender, Soft Back: Yes: Normal Inspection Musculoskeletal: Yes: Muscle weakness Extremities: Yes: Non-Tender, Tremors Neurological: Yes: Fully Oriented, Alert, Depressed Affect Integumentary: Yes: Warm, Other (left forearm and right pre-tibial excoriations .) - Diagnostic (1) Alcohol dependence with uncomplicated withdrawal Current Visit: Yes Status: Acute Breathalyzer - Breathalyzer Breathalyzer: 0.078 Urine Drug Screen - Test Device Lot number: [id number] Expiration date: 08/13/20 - Control Is test valid?: Yes - Results Drug screen NEGATIVE: Yes Inpatient Rehab Admission - Rehab Decision to Admit Inpatient rehab admission?: No
[2018-12-03] MEDS ORDERED: MENTHOL/PHENOL 1 EACH UD MM PRN (09:37)
[2018-12-03] MEDS ORDERED: ACETAMINOPHEN 325 MG TABLET (FP) PO PRN (09:37)
[2018-12-03] MEDS ORDERED: ONDANSETRON *ODT* 4 MG TABLET SL PRN (09:37)
[2018-12-03] MEDS ORDERED: MAGNESIUM HYDROX 2400MG/30ML ORAL SUSPENSION 30 ML CUP PO PRN (09:37)
[2018-12-03] MEDS ORDERED: MAG HYDROX/AL HYDROX/SIMETH 30 ML UNIT-DOSE CUP PO PRN (09:37)
[2018-12-03] MEDS ORDERED: BISMUTH SUBSALICYLATE 524 MG/30 ML UD PO PRN (09:37)
[2018-12-03] MEDS ORDERED: hydrOXYzine PAMOATE 25 MG CAPSULE (FP) PO PRN (09:37)
[2018-12-03] MEDS ORDERED: MAGNESIUM CITRATE 300 ML BOTTLE PO PRN (09:37)
[2018-12-03] MEDS ORDERED: IBUPROFEN 400 MG TABLET (FP) PO PRN (09:37)
[2018-12-03] MEDS ORDERED: chlordiazePOXIDE HCL 25 MG CAPSULE PO PRN (09:38)
[2018-12-03] MEDS ORDERED: chlordiazePOXIDE HCL 25 MG CAPSULE PO ONE (09:38)
[2018-12-03] MEDS: BACITRACIN/POLYMYXIN B SULFATE 15 GM TUBE TP SCH ×2 (10:44→22:19)
[2018-12-03] MEDS: PRENATAL VITAMINS W/ FOLIC ACID TABLET (FP) PO SCH (10:44)
[2018-12-03] MEDS: chlordiazePOXIDE HCL 25 MG CAPSULE PO SCH ×3 (10:44→22:19)
[2018-12-03] MEDS ORDERED: TRIMETHOBENZAMIDE HCL 200MG/2ML INJ IM PRN (13:54)
[2018-12-03] MEDS: THIAMINE HCL 100 MG TABLET (FP) PO SCH (22:19)
[2018-12-03] MEDS: MELATONIN 5 MG TABLETS PO PRN (22:19)
[2018-12-04] MEDS: chlordiazePOXIDE HCL 25 MG CAPSULE PO SCH ×4 (05:36→22:00)
[2018-12-04] MEDS: ACETAMINOPHEN 325 MG TABLET (FP) PO PRN (06:22)
[2018-12-04] MEDS: PRENATAL VITAMINS W/ FOLIC ACID TABLET (FP) PO SCH (10:11)
[2018-12-04] MEDS: BACITRACIN/POLYMYXIN B SULFATE 15 GM TUBE TP SCH ×2 (10:11→22:00)
[2018-12-04 11:26] LABS: HEMATOCRIT 26.7 % (35.4-49); HEMOGLOBIN 8.2 GM/dL (11.7-16.9); MCH 20.7 pg (25.7-33.7); MCHC 30.7 g/dl (32.0-35.9); MEAN CELL VOLUME 67.3 fl (80-96); MEAN PLT VOLUME 8.5 fl (7.5-11.1); PLATELET COUNT 262 K/MM3 (134-434); RBC 3.96 M/mm3 (4.00-5.60); RDW 20.8 % (11.9-15.9); WHITE BLOOD COUNT 5.1 K/mm3 (4.0-10.0)
[2018-12-04 11:30] LABS: ALBUMIN 3.7 g/dl (3.4-5.0); BLOOD UREA NITROGEN 14.2 mg/dL (7-18); CALCIUM 9.2 mg/dL (8.5-10.1); CREATININE 0.7 mg/dL (0.55-1.3); TOT PROT 7.5 g/dl (6.4-8.2)
[2018-12-04 11:41] LABS: POTASSIUM 2.8 mmol/L (3.5-5.1)
[2018-12-04] MEDS ORDERED: POTASSIUM CHLORIDE TABS 20 MEQ TABLET.ER (FP) PO ONE (11:43)
--- NOTE | 2018-12-04 16:29 | PN ---
S CIWA - CIWA Score Nausea/Vomitin-No Nausea/No Vomiting Muscle Tremors: 3 Anxiety: 3 Agitation: 2 Paroxysmal Sweats: 3 Orientation: 0-Oriented Tacttile Disturbances: 0-None Auditory Disturbances: 0-None Visual Disturbances: 2-Mild Sensitivity Headache: 2-Mild CIWA-Ar Total Score: 15 S Progress Note (SOAP) Subjective: Anxious, Sweating, H/A, Poor Appetite. Objective: PATIENT A & O X 3, OBSERVED AMBULATING ON DETOX UNIT UNASSISTED. IN NO ACUTE DISTRESS. 12/04/18 16:25 Vital Signs Temperature 97.6 F 12/04/18 13:34 Pulse Rate 120 H 12/04/18 13:34 Respiratory Rate 20 12/04/18 13:34 Blood Pressure 142/88 12/04/18 13:34 O2 Sat by Pulse Oximetry (%) Laboratory Tests 12/04/18 12/04/18 12/04/18 08:00 08:00 08:00 WBC 5.1 RBC 3.96 L Hgb 8.2 L Hct 26.7 L D MCV 67.3 L MCH 20.7 L D MCHC 30.7 L RDW 20.8 H Plt Count 262 D MPV 8.5 Sodium 134 L Potassium 2.8 L* Chloride 91 L Carbon Dioxide 33 H Anion Gap 10 BUN 14.2 Creatinine 0.7 Est GFR (CKD-EPI)AfAm 134.91 Est GFR (CKD-EPI)NonAf 116.40 Random Glucose 122 H Calcium 9.2 Total Bilirubin 1.0 AST 32 ALT 33 Alkaline Phosphatase 106 Total Protein 7.5 Albumin 3.7 RPR Titer Nonreactive LABS NOTED. PATIENT HAS BEEN ANEMIC ON PREVIOUS ADMISSIONS. PATIENT REPORTED HISTORY OF ANEMIA ON DETOX ADMISSION LABORATORY ASSESSMENT. 12/04/18 16:29 Assessment: 12/04/18 16:29 WITHDRAWAL SYMPTOMS. ANEMIA. HYPOKALEMIA. Plan: CONTINUE DETOX. INCREASE DAILY PO WATER INTAKE. FEOSOL, 325 MG PO TIDCM FOR ANEMIA NOTED ON DETOX ADMISSION LABORATORY ASSESSMENT. REPEAT CBC TOMORROW AM FOR ANEMIA NOTED ON DETOX ADMISSION LABORATORY ASSESSMENT. K-DUR, 40 MEQ PO X 1 DOSE NOW, THEN 20 MEQ (LIQUID) PO BID AFTER FOR LOW POTASSIUM LEVEL NOTED ON DETOX ADMISSION LABORATORY ASSESSMENT. REPEAT POTASSIUM LEVEL ORDERED ON 12/06/2018 IN AM TO SEE IF ANY CHANGE FROM DETOX ADMISSION POTASSIUM LEVEL.
[2018-12-04] MEDS: FERROUS SO4 325 MG TABLET (FP) PO SCH (17:29)
[2018-12-04] MEDS: POTASSIUM CHLORIDE ORAL LIQUID 20 MEQ/15 ML PO SCH (22:00)
[2018-12-04] MEDS: THIAMINE HCL 100 MG TABLET (FP) PO SCH (22:00)
[2018-12-05] MEDS: chlordiazePOXIDE HCL 25 MG CAPSULE PO SCH ×4 (05:10→22:07)
[2018-12-05] MEDS: FERROUS SO4 325 MG TABLET (FP) PO SCH ×3 (07:06→17:28)
[2018-12-05 09:16] LABS: BASO % 1.5 % (0-2.0); EOS % 3.7 % (0-4.5); HEMATOCRIT 27.6 % (35.4-49); HEMOGLOBIN 8.1 GM/dL (11.7-16.9); LYMPH % 31.3 % (8-40); MCH 20.4 pg (25.7-33.7); MCHC 29.3 g/dl (32.0-35.9); MEAN CELL VOLUME 69.6 fl (80-96); MEAN PLT VOLUME 8.8 fl (7.5-11.1); MONO % 7.7 % (3.8-10.2); NEUT % 55.8 % (42.8-82.8); PLATELET COUNT 273 K/MM3 (134-434); RBC 3.96 M/mm3 (4.00-5.60); RDW 20.7 % (11.9-15.9); WHITE BLOOD COUNT 4.7 K/mm3 (4.0-10.0)
[2018-12-05] MEDS: PRENATAL VITAMINS W/ FOLIC ACID TABLET (FP) PO SCH (10:14)
[2018-12-05] MEDS: POTASSIUM CHLORIDE ORAL LIQUID 20 MEQ/15 ML PO SCH ×2 (10:14→22:07)
[2018-12-05] MEDS: BACITRACIN/POLYMYXIN B SULFATE 15 GM TUBE TP SCH ×2 (10:14→22:08)
[2018-12-05 11:48] LABS: ANISOCYTOSIS 2+; MACROCYTOSIS 0; PLATELET ESTIMATE NORMAL; TARGET CELLS 1+
--- NOTE | 2018-12-05 12:59 | PN ---
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 Objective: 12/05/18 12:56 Vital Signs Temperature 97.3 F L 12/05/18 09:12 Pulse Rate 116 H 12/05/18 09:12 Respiratory Rate 20 12/05/18 09:12 Blood Pressure 121/76 12/05/18 09:12 O2 Sat by Pulse Oximetry (%) Laboratory Last Values WBC 4.7 K/mm3 (4.0-10.0) 12/05/18 07:40 RBC 3.96 M/mm3 (4.00-5.60) L 12/05/18 07:40 Hgb 8.1 GM/dL (11.7-16.9) L 12/05/18 07:40 Hct 27.6 % (35.4-49) L 12/05/18 07:40 MCV 69.6 fl (80-96) L 12/05/18 07:40 MCH 20.4 pg (25.7-33.7) L 12/05/18 07:40 MCHC 29.3 g/dl (32.0-35.9) L 12/05/18 07:40 RDW 20.7 % (11.9-15.9) H 12/05/18 07:40 Plt Count 273 K/MM3 (134-434) 12/05/18 07:40 MPV 8.8 fl (7.5-11.1) 12/05/18 07:40 Absolute Neuts (auto) 2.6 K/mm3 (1.5-8.0) 12/05/18 07:40 Neutrophils % 55.8 % (42.8-82.8) D 12/05/18 07:40 Lymphocytes % 31.3 % (8-40) D 12/05/18 07:40 Monocytes % 7.7 % (3.8-10.2) 12/05/18 07:40 Eosinophils % 3.7 % (0-4.5) 12/05/18 07:40 Basophils % 1.5 % (0-2.0) 12/05/18 07:40 Nucleated RBC % 0 % (0-0) 12/05/18 07:40 Platelet Estimate Normal 12/05/18 07:40 Polychromasia 1+ 12/05/18 07:40 Poikilocytosis 0 12/05/18 07:40 Anisocytosis 2+ 12/05/18 07:40 Microcytosis 2+ 12/05/18 07:40 Macrocytosis 0 12/05/18 07:40 Target Cells 1+ 12/05/18 07:40 Sodium 134 mmol/L (136-145) L 12/04/18 08:00 Potassium 2.8 mmol/L (3.5-5.1) L* 12/04/18 08:00 Chloride 91 mmol/L (98-107) L 12/04/18 08:00 Carbon Dioxide 33 mmol/L (21-32) H 12/04/18 08:00 Anion Gap 10 MMOL/L (8-16) 12/04/18 08:00 BUN 14.2 mg/dL (7-18) 12/04/18 08:00 Creatinine 0.7 mg/dL (0.55-1.3) 12/04/18 08:00 Est GFR (CKD-EPI)AfAm 134.91 12/04/18 08:00 Est GFR (CKD-EPI)NonAf 116.40 12/04/18 08:00 Random Glucose 122 mg/dL (74-106) H 12/04/18 08:00 Calcium 9.2 mg/dL (8.5-10.1) 12/04/18 08:00 Total Bilirubin 1.0 mg/dL (0.2-1) 12/04/18 08:00 AST 32 U/L (15-37) 12/04/18 08:00 ALT 33 U/L (13-61) 12/04/18 08:00 Alkaline Phosphatase 106 U/L (45-117) 12/04/18 08:00 Total Protein 7.5 g/dl (6.4-8.2) 12/04/18 08:00 Albumin 3.7 g/dl (3.4-5.0) 12/04/18 08:00 RPR Titer Nonreactive (NONREACTIVE) 12/04/18 08:00 lab noted anemia low K+ 12/05/18 12:58 iron supplement K+ supplement Assessment: 12/05/18 12:58 alcohol withdrawal sx Plan: continue librium detox regimen
[2018-12-05] MEDS: THIAMINE HCL 100 MG TABLET (FP) PO SCH (22:07)
[2018-12-05] MEDS: MELATONIN 5 MG TABLETS PO PRN (23:28)
[2018-12-06] MEDS ORDERED: chlordiazePOXIDE HCL 10 MG CAPSULE PO PRN
[2018-12-06] MEDS: chlordiazePOXIDE HCL 10 MG CAPSULE PO SCH ×4 (05:58→22:01)
[2018-12-06] MEDS: FERROUS SO4 325 MG TABLET (FP) PO SCH ×3 (07:37→17:07)
[2018-12-06] MEDS: POTASSIUM CHLORIDE ORAL LIQUID 20 MEQ/15 ML PO SCH ×2 (11:04→22:01)
[2018-12-06] MEDS: PRENATAL VITAMINS W/ FOLIC ACID TABLET (FP) PO SCH (11:04)
[2018-12-06] MEDS: BACITRACIN/POLYMYXIN B SULFATE 15 GM TUBE TP SCH ×2 (11:05→22:03)
--- NOTE | 2018-12-06 13:04 | PN ---
S CIWA - CIWA Score Nausea/Vomitin-No Nausea/No Vomiting Muscle Tremors: 2 Anxiety: 2 Agitation: 2 Paroxysmal Sweats: 1-Minimal Palms Moist Orientation: 0-Oriented Tacttile Disturbances: 1-Very Mild Itch/Numbness Auditory Disturbances: 0-None Visual Disturbances: 0-None Headache: 0-None Present CIWA-Ar Total Score: 8 BHS Progress Note (SOAP) Subjective: doing well with librium detox regimen left fore arm "scratch" my self days ago 2 cm round skin abrasion on left forearm edge pink flesh well demarcated no bleeding no discharge order clean with saline solution pad dry with gauze bacitracine ointment apply cover with steril gauze keep area clean and dry Objective: 12/06/18 13:08 Vital Signs Temperature 96.4 F L 12/06/18 09:31 Pulse Rate 85 12/06/18 09:31 Respiratory Rate 18 12/06/18 09:31 Blood Pressure 123/83 12/06/18 09:31 O2 Sat by Pulse Oximetry (%) Laboratory Last Values WBC 4.7 K/mm3 (4.0-10.0) 12/05/18 07:40 RBC 3.96 M/mm3 (4.00-5.60) L 12/05/18 07:40 Hgb 8.1 GM/dL (11.7-16.9) L 12/05/18 07:40 Hct 27.6 % (35.4-49) L 12/05/18 07:40 MCV 69.6 fl (80-96) L 12/05/18 07:40 MCH 20.4 pg (25.7-33.7) L 12/05/18 07:40 MCHC 29.3 g/dl (32.0-35.9) L 12/05/18 07:40 RDW 20.7 % (11.9-15.9) H 12/05/18 07:40 Plt Count 273 K/MM3 (134-434) 12/05/18 07:40 MPV 8.8 fl (7.5-11.1) 12/05/18 07:40 Absolute Neuts (auto) 2.6 K/mm3 (1.5-8.0) 12/05/18 07:40 Neutrophils % 55.8 % (42.8-82.8) D 12/05/18 07:40 Lymphocytes % 31.3 % (8-40) D 12/05/18 07:40 Monocytes % 7.7 % (3.8-10.2) 12/05/18 07:40 Eosinophils % 3.7 % (0-4.5) 12/05/18 07:40 Basophils % 1.5 % (0-2.0) 12/05/18 07:40 Nucleated RBC % 0 % (0-0) 12/05/18 07:40 Platelet Estimate Normal 12/05/18 07:40 Polychromasia 1+ 12/05/18 07:40 Poikilocytosis 0 12/05/18 07:40 Anisocytosis 2+ 12/05/18 07:40 Microcytosis 2+ 12/05/18 07:40 Macrocytosis 0 12/05/18 07:40 Target Cells 1+ 12/05/18 07:40 Sodium 134 mmol/L (136-145) L 12/04/18 08:00 Potassium 3.4 mmol/L (3.5-5.1) L 12/06/18 08:30 Chloride 91 mmol/L (98-107) L 12/04/18 08:00 Carbon Dioxide 33 mmol/L (21-32) H 12/04/18 08:00 Anion Gap 10 MMOL/L (8-16) 12/04/18 08:00 BUN 14.2 mg/dL (7-18) 12/04/18 08:00 Creatinine 0.7 mg/dL (0.55-1.3) 12/04/18 08:00 Est GFR (CKD-EPI)AfAm 134.91 12/04/18 08:00 Est GFR (CKD-EPI)NonAf 116.40 12/04/18 08:00 Random Glucose 122 mg/dL (74-106) H 12/04/18 08:00 Calcium 9.2 mg/dL (8.5-10.1) 12/04/18 08:00 Total Bilirubin 1.0 mg/dL (0.2-1) 12/04/18 08:00 AST 32 U/L (15-37) 12/04/18 08:00 ALT 33 U/L (13-61) 12/04/18 08:00 Alkaline Phosphatase 106 U/L (45-117) 12/04/18 08:00 Total Protein 7.5 g/dl (6.4-8.2) 12/04/18 08:00 Albumin 3.7 g/dl (3.4-5.0) 12/04/18 08:00 RPR Titer Nonreactive (NONREACTIVE) 12/04/18 08:00 lab noted K+ low glucose elevated K+ supplement fasting glucose Assessment: 12/06/18 13:15 alcohol withdrawal sx Plan: continue librium detox regimen
[2018-12-06] MEDS: THIAMINE HCL 100 MG TABLET (FP) PO SCH (22:01)
[2018-12-06] MEDS: MELATONIN 5 MG TABLETS PO PRN (22:02)
[2018-12-07] MEDS: chlordiazePOXIDE HCL 10 MG CAPSULE PO SCH ×2 (05:32→17:12)
[2018-12-07] MEDS: FERROUS SO4 325 MG TABLET (FP) PO SCH ×3 (07:21→17:12)
[2018-12-07] MEDS: PRENATAL VITAMINS W/ FOLIC ACID TABLET (FP) PO SCH (10:04)
[2018-12-07] MEDS: POTASSIUM CHLORIDE ORAL LIQUID 20 MEQ/15 ML PO SCH ×2 (10:04→22:26)
[2018-12-07] MEDS: BACITRACIN/POLYMYXIN B SULFATE 15 GM TUBE TP SCH ×2 (10:05→22:26)
[2018-12-07 10:35] LABS: POTASSIUM 3.5 mmol/L (3.5-5.1)
--- NOTE | 2018-12-07 12:29 | PN ---
S CIWA - CIWA Score Nausea/Vomitin-No Nausea/No Vomiting Muscle Tremors: 2 Anxiety: 2 Agitation: 2 Paroxysmal Sweats: No Perspiration Orientation: 0-Oriented Tacttile Disturbances: 0-None Auditory Disturbances: 0-None Visual Disturbances: 0-None Headache: 0-None Present CIWA-Ar Total Score: 6 BHS Progress Note (SOAP) Subjective: left arm dressing clean and dry round skin abrasion no bleeding no discharge discuss aftercare with staff prefers [facility] Objective: 12/07/18 12:30 Vital Signs Temperature 96.8 F L 12/07/18 09:28 Pulse Rate 90 12/07/18 09:28 Respiratory Rate 16 12/07/18 09:28 Blood Pressure 128/77 12/07/18 09:28 O2 Sat by Pulse Oximetry (%) Laboratory Last Values WBC 4.7 K/mm3 (4.0-10.0) 12/05/18 07:40 RBC 3.96 M/mm3 (4.00-5.60) L 12/05/18 07:40 Hgb 8.1 GM/dL (11.7-16.9) L 12/05/18 07:40 Hct 27.6 % (35.4-49) L 12/05/18 07:40 MCV 69.6 fl (80-96) L 12/05/18 07:40 MCH 20.4 pg (25.7-33.7) L 12/05/18 07:40 MCHC 29.3 g/dl (32.0-35.9) L 12/05/18 07:40 RDW 20.7 % (11.9-15.9) H 12/05/18 07:40 Plt Count 273 K/MM3 (134-434) 12/05/18 07:40 MPV 8.8 fl (7.5-11.1) 12/05/18 07:40 Absolute Neuts (auto) 2.6 K/mm3 (1.5-8.0) 12/05/18 07:40 Neutrophils % 55.8 % (42.8-82.8) D 12/05/18 07:40 Lymphocytes % 31.3 % (8-40) D 12/05/18 07:40 Monocytes % 7.7 % (3.8-10.2) 12/05/18 07:40 Eosinophils % 3.7 % (0-4.5) 12/05/18 07:40 Basophils % 1.5 % (0-2.0) 12/05/18 07:40 Nucleated RBC % 0 % (0-0) 12/05/18 07:40 Platelet Estimate Normal 12/05/18 07:40 Polychromasia 1+ 12/05/18 07:40 Poikilocytosis 0 12/05/18 07:40 Anisocytosis 2+ 12/05/18 07:40 Microcytosis 2+ 12/05/18 07:40 Macrocytosis 0 12/05/18 07:40 Target Cells 1+ 12/05/18 07:40 Sodium 134 mmol/L (136-145) L 12/04/18 08:00 Potassium 3.5 mmol/L (3.5-5.1) 12/07/18 08:15 Chloride 91 mmol/L (98-107) L 12/04/18 08:00 Carbon Dioxide 33 mmol/L (21-32) H 12/04/18 08:00 Anion Gap 10 MMOL/L (8-16) 12/04/18 08:00 BUN 14.2 mg/dL (7-18) 12/04/18 08:00 Creatinine 0.7 mg/dL (0.55-1.3) 12/04/18 08:00 Est GFR (CKD-EPI)AfAm 134.91 12/04/18 08:00 Est GFR (CKD-EPI)NonAf 116.40 12/04/18 08:00 Random Glucose 122 mg/dL (74-106) H 12/04/18 08:00 Fasting Glucose 140 mg/dL (74-106) H 12/07/18 08:15 Calcium 9.2 mg/dL (8.5-10.1) 12/04/18 08:00 Total Bilirubin 1.0 mg/dL (0.2-1) 12/04/18 08:00 AST 32 U/L (15-37) 12/04/18 08:00 ALT 33 U/L (13-61) 12/04/18 08:00 Alkaline Phosphatase 106 U/L (45-117) 12/04/18 08:00 Total Protein 7.5 g/dl (6.4-8.2) 12/04/18 08:00 Albumin 3.7 g/dl (3.4-5.0) 12/04/18 08:00 RPR Titer Nonreactive (NONREACTIVE) 12/04/18 08:00 lab noted Assessment: 12/07/18 12:30 alcohol withdrawal sx Plan: continue librium detox regimen
[2018-12-07] MEDS: ACETAMINOPHEN 325 MG TABLET (FP) PO PRN (21:29)
[2018-12-07] MEDS: MELATONIN 5 MG TABLETS PO PRN (22:26)
[2018-12-07] MEDS: THIAMINE HCL 100 MG TABLET (FP) PO SCH (22:26)
[2018-12-08] MEDS ORDERED: chlordiazePOXIDE HCL 10 MG CAPSULE PO ONE (05:00)
[2018-12-08] MEDS: FERROUS SO4 325 MG TABLET (FP) PO SCH (07:56)
[2018-12-08 09:09] VITALS: BP 113/74; PULSE 71; TEMP 96
[2018-12-08] MEDS: BACITRACIN/POLYMYXIN B SULFATE 15 GM TUBE TP SCH (09:26)
[2018-12-08] MEDS: PRENATAL VITAMINS W/ FOLIC ACID TABLET (FP) PO SCH (09:26)
[2018-12-08] MEDS: POTASSIUM CHLORIDE ORAL LIQUID 20 MEQ/15 ML PO SCH (09:26)
--- NOTE | 2018-12-08 13:45 | DS ---
[facility] Detox Discharge Summary Admission Date: 12/03/18 Discharge Date: 12/08/18 - History Present History: Alcohol Dependence Additional Comments: 43 years old male admitted on 12/03/18 for alcohol withdrawal sx management did well with librium detox regimen no complication through out the detox stay Cardiac S1S2 regular rate rhythm respiratory no wheezing extremities full range of motion - Physical Exam Results Vital Signs: Vital Signs Temperature 96 F L 12/08/18 09:08 Pulse Rate 71 12/08/18 09:08 Respiratory Rate 20 12/08/18 09:08 Blood Pressure 113/74 12/08/18 09:08 O2 Sat by Pulse Oximetry (%) Pertinent Admission Physical Exam Findings: alcohol withdrawal sx Laboratory Last Values WBC 4.7 K/mm3 (4.0-10.0) 12/05/18 07:40 RBC 3.96 M/mm3 (4.00-5.60) L 12/05/18 07:40 Hgb 8.1 GM/dL (11.7-16.9) L 12/05/18 07:40 Hct 27.6 % (35.4-49) L 12/05/18 07:40 MCV 69.6 fl (80-96) L 12/05/18 07:40 MCH 20.4 pg (25.7-33.7) L 12/05/18 07:40 MCHC 29.3 g/dl (32.0-35.9) L 12/05/18 07:40 RDW 20.7 % (11.9-15.9) H 12/05/18 07:40 Plt Count 273 K/MM3 (134-434) 12/05/18 07:40 MPV 8.8 fl (7.5-11.1) 12/05/18 07:40 Absolute Neuts (auto) 2.6 K/mm3 (1.5-8.0) 12/05/18 07:40 Neutrophils % 55.8 % (42.8-82.8) D 12/05/18 07:40 Lymphocytes % 31.3 % (8-40) D 12/05/18 07:40 Monocytes % 7.7 % (3.8-10.2) 12/05/18 07:40 Eosinophils % 3.7 % (0-4.5) 12/05/18 07:40 Basophils % 1.5 % (0-2.0) 12/05/18 07:40 Nucleated RBC % 0 % (0-0) 12/05/18 07:40 Platelet Estimate Normal 12/05/18 07:40 Polychromasia 1+ 12/05/18 07:40 Poikilocytosis 0 12/05/18 07:40 Anisocytosis 2+ 12/05/18 07:40 Microcytosis 2+ 12/05/18 07:40 Macrocytosis 0 12/05/18 07:40 Target Cells 1+ 12/05/18 07:40 Sodium 134 mmol/L (136-145) L 12/04/18 08:00 Potassium 3.5 mmol/L (3.5-5.1) 12/07/18 08:15 Chloride 91 mmol/L (98-107) L 12/04/18 08:00 Carbon Dioxide 33 mmol/L (21-32) H 12/04/18 08:00 Anion Gap 10 MMOL/L (8-16) 12/04/18 08:00 BUN 14.2 mg/dL (7-18) 12/04/18 08:00 Creatinine 0.7 mg/dL (0.55-1.3) 12/04/18 08:00 Est GFR (CKD-EPI)AfAm 134.91 12/04/18 08:00 Est GFR (CKD-EPI)NonAf 116.40 12/04/18 08:00 Random Glucose 122 mg/dL (74-106) H 12/04/18 08:00 Fasting Glucose 140 mg/dL (74-106) H 12/07/18 08:15 Calcium 9.2 mg/dL (8.5-10.1) 12/04/18 08:00 Total Bilirubin 1.0 mg/dL (0.2-1) 12/04/18 08:00 AST 32 U/L (15-37) 12/04/18 08:00 ALT 33 U/L (13-61) 12/04/18 08:00 Alkaline Phosphatase 106 U/L (45-117) 12/04/18 08:00 Total Protein 7.5 g/dl (6.4-8.2) 12/04/18 08:00 Albumin 3.7 g/dl (3.4-5.0) 12/04/18 08:00 RPR Titer Nonreactive (NONREACTIVE) 12/04/18 08:00 lab noted - Treatment Hospital Course: Detox Protocol Followed, Detoxed Safely, Responded well, Discharged Condition Good, Rehab Referral Accepted Patient [facility] - Medication Discharge Medications: Ambulatory Orders Ferrous Sulfate 12/03/18 Vit B Comp C 19/Folic Acid/D3 12/03/18 - Diagnosis (1) Alcohol dependence with uncomplicated withdrawal Status: Acute (2) GERD (gastroesophageal reflux disease) Status: Chronic Qualifiers: Esophagitis presence: without esophagitis Qualified Code(s): K21.9 - Gastro -esophageal reflux disease without esophagitis - AMA Did Patient Leave Against Medical Advice: No CIWA Score - CIWA Score Nausea/Vomitin-No Nausea/No Vomiting Muscle Tremors: 1-None Visible, but Pala Anxiety: 1-Mildly Anxious Agitation: 1-Slight > Activity Paroxysmal Sweats: No Perspiration Orientation: 0-Oriented Tacttile Disturbances: 0-None Auditory Disturbances: 0-None Visual Disturbances: 0-None Headache: 0-None Present CIWA-Ar Total Score: 3
== END 2018-12-08 09:31 | disposition home or self-care (01) | DRG 897 ==
LOC: YASAS 08:26 → Y3N 09:56
PROVIDERS: ADMIT Surgery; ATTEND Surgery
PROC: HZ2ZZZZ Detoxification Services for Substance Abuse Treatment (ICD-10-PCS; principal; 2018-12-03)
DX: F10.230 Alcohol dependence with withdrawal, uncomplicated (principal); K21.9 Gastro-esophageal reflux disease without esophagitis; R73.9 Hyperglycemia, unspecified; D64.9 Anemia, unspecified; E87.6 Hypokalemia; R00.0 Tachycardia, unspecified
CPT/HCPCS: 36415; 80053; 82947; 84132; 85025; 85027; 86593

== ENCOUNTER 2019-02-14 14:15 | Inpatient (IN) | payer OTHER ==
[2019-02-14 16:08] VITALS: BMI 29.0
--- NOTE | 2019-02-14 16:35 | HP ---
CIWA Score Nausea/Vomitin-No Nausea/No Vomiting Muscle Tremors: 1-None Visible, but [place] Anxiety: 4-Mod. Anxious/Guarded Agitation: 4-Moderately Restless Paroxysmal Sweats: 1-Minimal Palms Moist Orientation: 0-Oriented Tacttile Disturbances: 0-None Auditory Disturbances: 2-Mild Harshness/Frighten Visual Disturbances: 2-Mild Sensitivity Headache: 2-Mild CIWA-Ar Total Score: 16 - Admission Criteria OASAS Guidelines: Admission for Medically Managed Detox: Requires at least one of the followin. CIWA greater than 12 2. Seizures within the past 24 hours 3. Delirium tremens within the past 24 hours 4. Hallucinations within the past 24 hours 5. Acute intervention needed for co occurring medical disorder 6. Acute intervention needed for co occurring psychiatric disorder 7. Severe withdrawal that cannot be handled at a lower level of care (continued vomiting, continued diarrhea, abnormal vital signs) requiring intravenous medication and/or fluids 8. Admitting History and Physical - Past Medical History Gastrointestinal: Yes: GI Bleed Psych: Yes: Other (EtOHism) - Smoking History Smoking history: Never smoked Have you smoked in the past 12 months: No If you are a former smoker, when did you quit?: 2006 - Alcohol/Substance Use Hx Alcohol Use: Yes (sober x 8 months per pt..) Admission ROS [facility] - HPI Allergies/Adverse Reactions: Allergies Allergy/AdvReac Type Severity Reaction Status Date / Time No Known Allergies Allergy Verified 02/14/19 16:00 History of Present Illness: pt here requesting detox from etoh use , reports relapse since yesterday morning , prior sobriety since d/c from this facility Nov 2018 , first age of use 18 latest use this morning , + blackout , denies falls , denies injuries PMHX : anemia since age 7 , reports numerous transfusions throughout his lifetime, most recently reportedly 2 yrs ago [facility]. PShx : colon polyps , gastritis, hemorrhoids Psych : denies tobacco : denies ( quit 12 years ago ) denies illicits Exam Limitations: Clinical Condition, Intoxication - Ebola screening Have you traveled outside of the country in the last 21 days: No Have you had contact with anyone from an Ebola affected area: No Do you have a fever: No - Review of Systems Constitutional: See HPI EENT: reports: No Symptoms Reported, Other (glasses) Respiratory: reports: No Symptoms reported Cardiac: reports: No Symptoms Reported GI: reports: See HPI, Diarrhea, Nausea, Poor Appetite : reports: No Symptoms Reported Musculoskeletal: reports: No Symptoms Reported Integumentary: reports: Rash (reports from scratching himself) Neuro: reports: Headache, Tremors Endocrine: reports: No Symptoms Reported Hematology: reports: Anemia Psychiatric: reports: Orientated x3, Agitated, Anxious Patient History - Patient Medical History Hx Anemia: Yes Hx Asthma: No Hx Chronic Obstructive Pulmonary Disease (COPD): No Hx Cancer: No Hx Cardiac Disorders: No Hx Congestive Heart Failure: No Hx Hypertension: No Hx Hypercholesterolemia: No Hx Pacemaker: No HX Cerebrovascular Accident: No Hx Seizures: No Hx Dementia: No Hx Diabetes: No Hx Gastrointestinal Disorders: Yes ( gastritis, hemmorhoids, colonic polyps) Hx Liver Disease: No Hx Genitourinary Disorders: No Hx Sexually Transmitted Disorders: No Hx Renal Disease (ESRD): No Hx Thyroid Disease: No Hx Human Immunodeficiency Virus (HIV): No Hx Hepatitis C: No Hx Depression: Yes Hx Suicide Attempt: No Hx Bipolar Disorder: No Hx Schizophrenia: No - Patient Surgical History Past Surgical History: No Hx Neurologic Surgery: No Hx Cataract Extraction: No Hx Cardiac Surgery: No Hx Lung Surgery: No Hx Breast Surgery: No Hx Breast Biopsy: No Hx Abdominal Surgery: Yes (removal of polyps in 2016) Hx Appendectomy: No Hx Cholecystectomy: No Hx Genitourinary Surgery: No Hx Section: No Hx Orthopedic Surgery: No Anesthesia Reaction: No - PPD History Date: 06/19/17 - Smoking Cessation Smoking history: Never smoked Have you smoked in the past 12 months: No If you are a former smoker, when did you quit?: 2006 Hx Chewing Tobacco Use: No Initiated information on smoking cessation: No - Substances abused Alcohol Substance route: Oral Frequency: 1-3 times last 30 days Amount used: 2 pints vodka Age of first use: 18 Date of last use: 02/14/19 Admission Physical Exam [facility] - Vital Signs Vital Signs: Vital Signs - 24 hr 02/14/19 16:00 Temperature 97.4 F L Pulse Rate 97 H Respiratory 18 Rate Blood Pressure 122/71 - Physical General Appearance: Yes: Alcohol on Breath, Intoxicated, Anxious HEENTM: Yes: EOMI, Hearing grossly Normal, Normocephalic, Normal Voice Respiratory: Yes: Chest Non-Tender, Lungs Clear, Normal Breath Sounds, No Respiratory Distress, No Accessory Muscle Use Neck: Yes: No masses,lesions,Nodules, Trachea in good position Cardiology: Yes: Regular Rhythm, Regular Rate, S1, S2, Tachycardia Abdominal: Yes: Non Tender, Soft Musculoskeletal: Yes: full range of Motion, Gait Steady Extremities: Yes: Normal Range of Motion, Non-Tender Neurological: Yes: Fully Oriented, Alert, Depressed Affect Integumentary: Yes: Warm, Other (superficial excoriations hien LE pre-tibially) - Addiitonal Findings: pt agreeable to f/up w/ GI and hematology re : anemia - Diagnostic (1) Alcohol intoxication Current Visit: Yes Status: Acute Qualifiers: Complication of substance-induced condition: uncomplicated Qualified Code(s ): F10.920 - Alcohol use, unspecified with intoxication, uncomplicated Breathalyzer - Breathalyzer Breathalyzer: 0.282 Urine Drug Screen - Test Device Lot number: [id number] Expiration date: 10/12/20 - Control Is test valid?: Yes - Results Drug screen NEGATIVE: Yes Inpatient Rehab Admission - Rehab Decision to Admit Inpatient rehab admission?: No
[2019-02-14] MEDS ORDERED: MAGNESIUM HYDROX 2400MG/30ML ORAL SUSPENSION 30 ML CUP PO PRN (16:55)
[2019-02-14] MEDS ORDERED: ACETAMINOPHEN 325 MG TABLET (FP) PO PRN ×2 (16:55)
[2019-02-14] MEDS ORDERED: MAG HYDROX/AL HYDROX/SIMETH 30 ML UNIT-DOSE CUP PO PRN (16:55)
[2019-02-14] MEDS ORDERED: MENTHOL/PHENOL 1 EACH UD MM PRN (16:55)
[2019-02-14] MEDS ORDERED: MAGNESIUM CITRATE 300 ML BOTTLE PO PRN (16:55)
[2019-02-14] MEDS ORDERED: IBUPROFEN 400 MG TABLET (FP) PO PRN (16:55)
[2019-02-14] MEDS ORDERED: BISMUTH SUBSALICYLATE 524 MG/30 ML UD PO PRN (16:55)
[2019-02-14] MEDS: chlordiazePOXIDE HCL 25 MG CAPSULE PO PRN (18:00)
[2019-02-14] MEDS: chlordiazePOXIDE HCL 25 MG CAPSULE PO SCH ×2 (19:31→22:08)
[2019-02-14] MEDS: THIAMINE HCL 100 MG TABLET (FP) PO SCH (22:08)
[2019-02-14] MEDS: MELATONIN 5 MG TABLETS PO PRN (23:25)
[2019-02-14] MEDS: hydrOXYzine PAMOATE 25 MG CAPSULE (FP) PO PRN (23:26)
[2019-02-15] MEDS: chlordiazePOXIDE HCL 25 MG CAPSULE PO PRN (01:04)
[2019-02-15] MEDS: chlordiazePOXIDE HCL 25 MG CAPSULE PO SCH ×4 (05:31→22:12)
[2019-02-15 10:16] LABS: ALBUMIN 3.9 g/dl (3.4-5.0); BILIRUBIN,TOTAL 1.1 mg/dL (0.2-1); BLOOD UREA NITROGEN 7.8 mg/dL (7-18); CALCIUM 9.5 mg/dL (8.5-10.1); CREATININE 0.6 mg/dL (0.55-1.3); POTASSIUM 3.7 mmol/L (3.5-5.1); TOT PROT 7.6 g/dl (6.4-8.2)
[2019-02-15] MEDS: PRENATAL VITAMINS W/ FOLIC ACID TABLET (FP) PO SCH (10:20)
[2019-02-15 10:25] LABS: HEMATOCRIT 32.9 % (35.4-49); HEMOGLOBIN 9.9 GM/dL (11.7-16.9); MCHC 30.2 g/dl (32.0-35.9); MEAN CELL VOLUME 65.9 fl (80-96); MEAN PLT VOLUME 8.2 fl (7.5-11.1); PLATELET COUNT 390 K/MM3 (134-434); RDW 22.1 % (11.9-15.9); WHITE BLOOD COUNT 4.6 K/mm3 (4.0-10.0)
[2019-02-15 10:29] LABS: MCH 19.9 pg (25.7-33.7)
--- NOTE | 2019-02-15 10:31 | PN ---
S CIWA - CIWA Score Nausea/Vomitin-No Nausea/No Vomiting Muscle Tremors: 3 Anxiety: 2 Agitation: 3 Paroxysmal Sweats: 2 Orientation: 0-Oriented Tacttile Disturbances: 0-None Auditory Disturbances: 0-None Visual Disturbances: 0-None Headache: 0-None Present CIWA-Ar Total Score: 10 S Progress Note (SOAP) Subjective: weakly sweats mild shakes tired Objective: 02/15/19 10:26 Vital Signs Temperature 98.1 F 02/15/19 09:22 Pulse Rate 74 02/15/19 09:22 Respiratory Rate 18 02/15/19 09:22 Blood Pressure 104/61 02/15/19 09:22 O2 Sat by Pulse Oximetry (%) Laboratory Tests 02/15/19 08:00 Sodium 137 Potassium 3.7 Chloride 100 Carbon Dioxide 30 Anion Gap 7 L BUN 7.8 Creatinine 0.6 Est GFR (CKD-EPI)AfAm 143.73 Est GFR (CKD-EPI)NonAf 124.01 Random Glucose 83 Calcium 9.5 Iron 84 TIBC 436 Iron Saturation 19 Unsaturated IBC 352 H Total Bilirubin 1.1 H AST 28 ALT 42 Alkaline Phosphatase 78 Total Protein 7.6 Albumin 3.9 rest of labs pending aaox3 ambulating no acute distress Assessment: 02/15/19 10:30 withdrawals Plan: continue detox increase fluids pending labs
[2019-02-15 10:58] LABS: SICKLE CELL SCREEN NEGATIVE (NEGATIVE)
[2019-02-15] MEDS: MELATONIN 5 MG TABLETS PO PRN (22:13)
[2019-02-15] MEDS: THIAMINE HCL 100 MG TABLET (FP) PO SCH (22:13)
[2019-02-16] MEDS: chlordiazePOXIDE HCL 10 MG CAPSULE PO SCH ×4 (05:20→22:08)
[2019-02-16] MEDS ORDERED: FERROUS SO4 325 MG TABLET (FP) PO ONE (09:48)
--- NOTE | 2019-02-16 09:53 | PN ---
[facility] CIWA - CIWA Score Nausea/Vomitin-No Nausea/No Vomiting Muscle Tremors: 3 Anxiety: 2 Agitation: 2 Paroxysmal Sweats: 2 Orientation: 0-Oriented Tacttile Disturbances: 0-None Auditory Disturbances: 0-None Visual Disturbances: 0-None Headache: 0-None Present CIWA-Ar Total Score: 9 S COWS - Scale Resting Pulse: 0= VT 80 or Below Sweatin=Flushed/Facial Moisture Restless Observation: 1= Difficult to Sit Still Pupil Size: 0= Normal to Room Light Bone or Joint Aches: 1= Mild Discomfort Runny Nose/ Eye Tearin= Nasal Congestion GI Upset > 30mins: 0= None Tremor Observation of Outstretched Hands: 2= Slight Tremor Visible Yawning Observation: 2= >3x During Session Anxiety or Irritability: 2=Irritable/Anxious Goose Flesh Skin: 0=Smooth Skin COWS Score: 11 [facility] Progress Note (SOAP) Subjective: interrupted sleep tired agitation Objective: 02/16/19 09:51 Vital Signs Temperature 96.8 F L 02/16/19 09:19 Pulse Rate 66 02/16/19 09:19 Respiratory Rate 18 02/16/19 09:19 Blood Pressure 108/70 02/16/19 09:19 O2 Sat by Pulse Oximetry (%) Laboratory Tests 02/15/19 02/15/19 02/15/19 08:00 08:00 08:00 WBC 4.6 RBC 5.00 Hgb 9.9 L Hct 32.9 L D MCV 65.9 L MCH 19.9 L MCHC 30.2 L RDW 22.1 H Plt Count 390 D MPV 8.2 Sickle Cell Screen Negative Sodium 137 Potassium 3.7 Chloride 100 Carbon Dioxide 30 Anion Gap 7 L BUN 7.8 Creatinine 0.6 Est GFR (CKD-EPI)AfAm 143.73 Est GFR (CKD-EPI)NonAf 124.01 Random Glucose 83 Calcium 9.5 Iron 84 TIBC 436 Iron Saturation 19 Unsaturated IBC 352 H Total Bilirubin 1.1 H AST 28 ALT 42 Alkaline Phosphatase 78 Total Protein 7.6 Albumin 3.9 RPR Titer Nonreactive labs noted low H:H noted; pt has h/o anemia will order iron supplement aaox3 lying in bed no acute distress Assessment: 02/16/19 09:52 withdrawals sx Plan: continue detox increase fluids iron supplement ordered repeat labs
[2019-02-16] MEDS: PRENATAL VITAMINS W/ FOLIC ACID TABLET (FP) PO SCH (10:26)
[2019-02-16] MEDS: FERROUS SO4 325 MG TABLET (FP) PO SCH ×2 (12:28→17:18)
[2019-02-16] MEDS: MELATONIN 5 MG TABLETS PO PRN (22:08)
[2019-02-16] MEDS: THIAMINE HCL 100 MG TABLET (FP) PO SCH (22:08)
[2019-02-17] MEDS ORDERED: chlordiazePOXIDE HCL 10 MG CAPSULE PO PRN
[2019-02-17] MEDS: chlordiazePOXIDE HCL 10 MG CAPSULE PO SCH ×2 (05:35→17:50)
[2019-02-17] MEDS: FERROUS SO4 325 MG TABLET (FP) PO SCH ×3 (07:09→17:50)
[2019-02-17 09:58] LABS: BASO % 1.6 % (0-2.0); EOS % 4.4 % (0-4.5); HEMATOCRIT 33.7 % (35.4-49); MCHC 29.6 g/dl (32.0-35.9); MEAN CELL VOLUME 66.7 fl (80-96); MEAN PLT VOLUME 7.9 fl (7.5-11.1); MONO % 7.8 % (3.8-10.2); NEUT % 56.2 % (42.8-82.8); PLATELET COUNT 376 K/MM3 (134-434); RBC 5.05 M/mm3 (4.00-5.60); RDW 22.4 % (11.9-15.9); WHITE BLOOD COUNT 6.1 K/mm3 (4.0-10.0)
[2019-02-17] MEDS: PRENATAL VITAMINS W/ FOLIC ACID TABLET (FP) PO SCH (10:03)
[2019-02-17] MEDS: hydrOXYzine PAMOATE 25 MG CAPSULE (FP) PO PRN (10:05)
[2019-02-17 10:06] LABS: MCH 19.7 pg (25.7-33.7)
--- NOTE | 2019-02-17 10:50 | PN ---
S CIWA - CIWA Score Nausea/Vomitin-No Nausea/No Vomiting Muscle Tremors: 2 Anxiety: 1-Mildly Anxious Agitation: 1-Slight > Activity Paroxysmal Sweats: No Perspiration Orientation: 0-Oriented Tacttile Disturbances: 0-None Auditory Disturbances: 0-None Visual Disturbances: 0-None Headache: 0-None Present CIWA-Ar Total Score: 4 [facility] Progress Note (SOAP) Subjective: feeling better little sweats Objective: 02/17/19 10:48 Vital Signs Temperature 97.3 F L 02/17/19 09:34 Pulse Rate 72 02/17/19 09:34 Respiratory Rate 18 02/17/19 09:34 Blood Pressure 119/86 02/17/19 09:34 O2 Sat by Pulse Oximetry (%) Laboratory Tests 02/15/19 02/15/19 02/15/19 08:00 08:00 08:00 WBC 4.6 RBC 5.00 Hgb 9.9 L Hct 32.9 L D MCV 65.9 L MCH 19.9 L MCHC 30.2 L RDW 22.1 H Plt Count 390 D MPV 8.2 Absolute Neuts (auto) Neutrophils % Lymphocytes % Monocytes % Eosinophils % Basophils % Nucleated RBC % Sickle Cell Screen Negative Sodium 137 Potassium 3.7 Chloride 100 Carbon Dioxide 30 Anion Gap 7 L BUN 7.8 Creatinine 0.6 Est GFR (CKD-EPI)AfAm 143.73 Est GFR (CKD-EPI)NonAf 124.01 Random Glucose 83 Calcium 9.5 Iron 84 TIBC 436 Iron Saturation 19 Unsaturated IBC 352 H Total Bilirubin 1.1 H AST 28 ALT 42 Alkaline Phosphatase 78 Total Protein 7.6 Albumin 3.9 RPR Titer Nonreactive 02/17/19 08:00 WBC 6.1 RBC 5.05 Hgb 10.0 L Hct 33.7 L MCV 66.7 L MCH 19.7 L MCHC 29.6 L RDW 22.4 H Plt Count 376 MPV 7.9 Absolute Neuts (auto) 3.4 Neutrophils % 56.2 Lymphocytes % 30.0 Monocytes % 7.8 Eosinophils % 4.4 Basophils % 1.6 Nucleated RBC % 0 Sickle Cell Screen Sodium Potassium Chloride Carbon Dioxide Anion Gap BUN Creatinine Est GFR (CKD-EPI)AfAm Est GFR (CKD-EPI)NonAf Random Glucose Calcium Iron TIBC Iron Saturation Unsaturated IBC Total Bilirubin AST ALT Alkaline Phosphatase Total Protein Albumin RPR Titer repeated labs show improvement continue with iron supplement as ordered aaox3 ambulating no acute distress Assessment: 02/17/19 10:49 mild withdrawals Plan: continue detox d/c in am
[2019-02-17 11:22] LABS: ANISOCYTOSIS 2+; MACROCYTOSIS 0; PLATELET ESTIMATE NORMAL; TEAR DROP CELLS 1+
[2019-02-17 16:50] VITALS: BP 131/78; PULSE 76; TEMP 98.2
--- NOTE | 2019-02-17 18:22 | DS ---
[facility] Detox Discharge Summary Admission Date: 02/14/19 Discharge Date: 02/17/19 - History Present History: Alcohol Dependence Pertinent Past History: GERD Vital Signs Temperature 98.2 F 02/17/19 16:49 Pulse Rate 76 02/17/19 16:49 Respiratory Rate 18 02/17/19 16:49 Blood Pressure 131/78 02/17/19 16:49 O2 Sat by Pulse Oximetry (%) Laboratory Last Values WBC 6.1 K/mm3 (4.0-10.0) 02/17/19 08:00 RBC 5.05 M/mm3 (4.00-5.60) 02/17/19 08:00 Hgb 10.0 GM/dL (11.7-16.9) L 02/17/19 08:00 Hct 33.7 % (35.4-49) L 02/17/19 08:00 MCV 66.7 fl (80-96) L 02/17/19 08:00 MCH 19.7 pg (25.7-33.7) L 02/17/19 08:00 MCHC 29.6 g/dl (32.0-35.9) L 02/17/19 08:00 RDW 22.4 % (11.9-15.9) H 02/17/19 08:00 Plt Count 376 K/MM3 (134-434) 02/17/19 08:00 MPV 7.9 fl (7.5-11.1) 02/17/19 08:00 Absolute Neuts (auto) 3.4 K/mm3 (1.5-8.0) 02/17/19 08:00 Neutrophils % 56.2 % (42.8-82.8) 02/17/19 08:00 Lymphocytes % 30.0 % (8-40) 02/17/19 08:00 Monocytes % 7.8 % (3.8-10.2) 02/17/19 08:00 Eosinophils % 4.4 % (0-4.5) 02/17/19 08:00 Basophils % 1.6 % (0-2.0) 02/17/19 08:00 Nucleated RBC % 0 % (0-0) 02/17/19 08:00 Hypochromia 2+ 02/17/19 08:00 Platelet Estimate Normal 02/17/19 08:00 Polychromasia 1+ 02/17/19 08:00 Poikilocytosis 1+ 02/17/19 08:00 Anisocytosis 2+ 02/17/19 08:00 Microcytosis 2+ 02/17/19 08:00 Macrocytosis 0 02/17/19 08:00 Tear Drop Cells 1+ 02/17/19 08:00 Sickle Cell Screen Negative (NEGATIVE) 02/15/19 08:00 Sodium 137 mmol/L (136-145) 02/15/19 08:00 Potassium 3.7 mmol/L (3.5-5.1) 02/15/19 08:00 Chloride 100 mmol/L (98-107) 02/15/19 08:00 Carbon Dioxide 30 mmol/L (21-32) 02/15/19 08:00 Anion Gap 7 MMOL/L (8-16) L 02/15/19 08:00 BUN 7.8 mg/dL (7-18) 02/15/19 08:00 Creatinine 0.6 mg/dL (0.55-1.3) 02/15/19 08:00 Est GFR (CKD-EPI)AfAm 143.73 02/15/19 08:00 Est GFR (CKD-EPI)NonAf 124.01 02/15/19 08:00 Random Glucose 83 mg/dL (74-106) 02/15/19 08:00 Calcium 9.5 mg/dL (8.5-10.1) 02/15/19 08:00 Iron 84 ug/dL (50-175) 02/15/19 08:00 TIBC 436 ug/dL (250-450) 02/15/19 08:00 Iron Saturation 19 % (17.5-39) 02/15/19 08:00 Unsaturated IBC 352 ug/dL (200-275) H 02/15/19 08:00 Total Bilirubin 1.1 mg/dL (0.2-1) H 02/15/19 08:00 AST 28 U/L (15-37) 02/15/19 08:00 ALT 42 U/L (13-61) 02/15/19 08:00 Alkaline Phosphatase 78 U/L (45-117) 02/15/19 08:00 Total Protein 7.6 g/dl (6.4-8.2) 02/15/19 08:00 Albumin 3.9 g/dl (3.4-5.0) 02/15/19 08:00 RPR Titer Nonreactive (NONREACTIVE) 02/15/19 08:00 - Physical Exam Results Vital Signs: Vital Signs Temperature 98.2 F 02/17/19 16:49 Pulse Rate 76 02/17/19 16:49 Respiratory Rate 18 02/17/19 16:49 Blood Pressure 131/78 02/17/19 16:49 O2 Sat by Pulse Oximetry (%) - Treatment Hospital Course: Detox Protocol Followed, Detoxed Safely, Responded well, Discharged Condition Good, Rehab Referral Accepted Patient has Accepted a Rehab Referral to: [facility] - Medication Discharge Medications: Ambulatory Orders Ferrous Sulfate [Feosol] 325 mg PO DAILY 02/14/19 - AMA Did Patient Leave Against Medical Advice: No
--- NOTE | 2019-02-17 18:27 | PN ---
[facility] Progress Note Note: Patient requested to leave today instead of tomorrow. Patient is schedule to follow up with referral to rehab at [place] in the morning. Patient requested d/c today to gather his belongings at home and go to [facility] in the morning.
[2019-02-18] MEDS ORDERED: chlordiazePOXIDE HCL 10 MG CAPSULE PO ONE (05:00)
== END 2019-02-17 18:38 | disposition home or self-care (01) | DRG 897 ==
LOC: YASAS 14:15 → Y6N 17:25
PROVIDERS: ADMIT Allergy & Immunology; ATTEND Allergy & Immunology
PROC: HZ2ZZZZ Detoxification Services for Substance Abuse Treatment (ICD-10-PCS; principal; 2019-02-14)
DX: F10.230 Alcohol dependence with withdrawal, uncomplicated (principal); F10.220 Alcohol dependence with intoxication, uncomplicated; D64.9 Anemia, unspecified; Z87.19 Personal history of other diseases of the digestive system; Z86.010 Personal history of colon polyps
CPT/HCPCS: 36415; 80053; 83540; 83550; 85025; 85027; 85660; 86593

== ENCOUNTER 2019-04-10 08:35 | Emergency (ER) | payer OTHER ==
[2019-04-10 08:58] VITALS: BMI 26.5
[2019-04-10] MEDS ORDERED: FAMOTIDINE 20 MG/50 ML IVPB 20 MG/50 ML MG IVPB ONE ×2 (09:07→09:46)
[2019-04-10] MEDS ORDERED: ONDANSETRON 4 MG/2 ML VIAL IVPUSH ONE (09:07)
[2019-04-10] MEDS ORDERED: SODIUM CHLORIDE 1,000 ML IV STA ×3 (09:07→11:37)
--- NOTE | 2019-04-10 09:07 | PDOC ---
History of Present Illness - General Chief Complaint: Nausea/Vomiting Stated Complaint: NAUSEA VOMITING WEAK Time Seen by Provider: 04/10/19 08:41 History Source: Patient Exam Limitations: No Limitations - History of Present Illness Initial Comments: 43 yo M history EtOH abuse presents with withdrawal symptoms. He states he was sober for years, recently relapsed in the setting of emotional stress. He states he does not know how much he drank, but he attempted to stop drinking on his own since yesterday, and developed anxiety, shaking, nausea. He has had similar symptoms in the past, he has gone through detox in the past. He went to another hospital, but stated that they gave him medication (unclear what he was given) and otherwise did nothing. Past History - Past Medical History Allergies/Adverse Reactions: Allergies Allergy/AdvReac Type Severity Reaction Status Date / Time No Known Allergies Allergy Verified 04/10/19 08:38 Home Medications: Ambulatory Orders Ferrous Sulfate [Feosol] 325 mg PO DAILY 02/14/19 Anemia: Yes Asthma: No Cancer: No Cardiac Disorders: No CVA: No COPD: No CHF: No Dementia: No Diabetes: No GI Disorders: Yes ( gastritis, hemmorhoids, colonic polyps) Disorders: No HTN: No Hypercholesterolemia: No Kidney Stones: No Liver Disease: No Seizures: No Thyroid Disease: No Other medical history: ALCOHOL ABUSE - Surgical History Abdominal Surgery: Yes (removal of polyps in 2016) Appendectomy: No Cardiac Surgery: No Cholecystectomy: No Lung Surgery: No Neurologic Surgery: No Orthopedic Surgery: No - Reproductive History Testicular Surgery: No - Psycho Social/Smoking Cessation Hx Smoking History: Former smoker Have you smoked in the past 12 months: No If you are a former smoker, when did you quit?: 13 YEARS Information on smoking cessation initiated: No Hx Alcohol Use: Yes (VODKA) Drug/Substance Use Hx: No Substance Use Type: Alcohol Hx Substance Use Treatment: No Review of Systems - Review of Systems Able to Perform ROS?: Yes Comments:: GENERAL/CONSTITUTIONAL: No fever or chills. +Weakness. HEAD, EYES, EARS, NOSE AND THROAT: No change in vision. No ear pain or discharge. No sore throat. CARDIOVASCULAR: No chest pain or shortness of breath. RESPIRATORY: No cough, wheezing, or hemoptysis. GASTROINTESTINAL: +Nausea. No vomiting, diarrhea or constipation. GENITOURINARY: No dysuria, frequency, or change in urination. MUSCULOSKELETAL: No joint or muscle swelling or pain. No neck or back pain. SKIN: No rash. NEUROLOGIC: No headache, vertigo, loss of consciousness, or change in strength/ sensation. ENDOCRINE: No increased thirst. No abnormal weight change. HEMATOLOGIC/LYMPHATIC: No anemia, easy bleeding, or history of blood clots. ALLERGIC/IMMUNOLOGIC: No hives or skin allergy. *Physical Exam - Vital Signs Last Vital Signs Temp Pulse Resp BP Pulse Ox 98.4 F 114 H 20 138/93 100 04/10/19 08:37 04/10/19 08:37 04/10/19 08:37 04/10/19 08:37 04/10/19 08:37 - Physical Exam GENERAL: Awake, alert, and fully oriented, in no acute distress HEAD: No signs of trauma EYES: PERRLA, EOMI, sclera anicteric, conjunctiva clear ENT: Auricles normal inspection, hearing grossly normal, nares patent, oropharynx clear without exudates. Moist mucosa. No tongue fasciculations NECK: Normal ROM, supple, no lymphadenopathy, JVD, or masses LUNGS: Breath sounds equal, clear to auscultation bilaterally. No wheezes, and no crackles HEART: Regular rate and rhythm, normal S1 and S2, no murmurs, rubs or gallops ABDOMEN: Soft, nontender, normoactive bowel sounds. No guarding, no rebound. No masses EXTREMITIES: Normal range of motion, no edema. No clubbing or cyanosis. No cords, erythema, or tenderness. Mild tremors in the hands B/L NEUROLOGICAL: Cranial nerves II through XII grossly intact. Normal speech, normal gait. Motor and sensation intact SKIN: Warm, dry, normal turgor, no rashes or lesions noted. ED Treatment Course - LABORATORY CBC & Chemistry Diagram: 04/10/19 09:15 04/10/19 14:00 Medical Decision Making - Medical Decision Making 04/10/19 12:10 Late entry. Patient found to have hypokalemia and rhabdo. Will give K riders and K-dur, as well as IV fluids. Will recheck labs. Will contact SW to determine where he can go. He states he does not want to go to [facility]. 04/10/19 13:53 Pt given additional valium as well as librium for withdrawal symptoms. No tongue fasciculations. Patient noted to have very minimal tremors of the hands B /L. Will send repeat labs to recheck K and CPK. 04/10/19 15:50 Patient with stable gait. No vomiting in ED, no tremors. He still declines admission to [facility]. Will search for a different detox program. CPK improved , below threshold for admission. Stable for DC home. Discharge - Discharge Information Problems reviewed: Yes Clinical Impression/Diagnosis: Alcohol use disorder, Hypokalemia Withdrawal symptoms, alcohol Qualifiers: Complication of substance-induced condition: uncomplicated Qualified Code(s): F10.230 - Alcohol dependence with withdrawal, uncomplicated Condition: Improved Disposition: HOME - Admission No - Follow up/Referral - Patient Discharge Instructions Patient Printed Discharge Instructions: DI for Alcohol Abuse, DI for Drug or Alcohol Withdrawal, DI for Rhabdomyolysis Print Language: DUTCH - Post Discharge Activity
[2019-04-10] MEDS ORDERED: diazePAM CARPU-JECT 10 MG/2 ML DISP.SYRIN IVPUSH ONE ×2 (09:09→13:52)
[2019-04-10] MEDS ORDERED: diazePAM CARPU-JECT 10 MG/2 ML DISP.SYRIN ONE (09:18)
[2019-04-10] MEDS ORDERED: ONDANSETRON 4 MG/2 ML VIAL ONE (09:19)
[2019-04-10 09:48] LABS: ALBUMIN 4.1 g/dl (3.4-5.0); ALK PHOS 66 U/L (45-117); ANION GAP 16 MMOL/L (8-16); BILIRUBIN,TOTAL 0.7 mg/dl (0.2-1); CALCIUM 8.3 mg/dl (8.5-10); CHLORIDE 88 mmol/L (98-107); CO2 28 mmol/L (21-32); CREATININE 0.6 mg/dl (0.55-1.3); GLUCOSE,RANDOM 259 mg/dl (74-106); SGOT/AST 124 U/L (15-37); SGPT/ALT 100 U/L (13-61); SODIUM 132 mmol/L (136-145); TOT PROT 7.2 g/dl (6.4-8.2)
[2019-04-10 09:50] LABS: BLOOD UREA NITROGEN < 5.7 mg/dl (7-18)
[2019-04-10 09:51] LABS: POTASSIUM 2.7 mmol/L (3.5-5.1)
[2019-04-10] MEDS ORDERED: POTASSIUM CHLORIDE ORAL LIQUID 20 MEQ/15 ML PO ONE (09:53)
[2019-04-10] MEDS ORDERED: POTASSIUM CHLORIDE ORAL LIQUID 20 MEQ/15 ML ONE (09:56)
[2019-04-10] MEDS ORDERED: KCL 10 MEQ IVPB 30 MEQ/300 ML INFUS.BAG IVPB ONE (09:57)
[2019-04-10] MEDS: KCL 10 MEQ IVPB 10 MEQ/100 ML INFUS.BAG IVPB SCH ×3 (10:07→12:23)
[2019-04-10 10:54] LABS: BASO % 1.6 % (0-2.0); EOS % 0.7 % (0-4.5); HEMATOCRIT 37.2 % (35.4-49); HEMOGLOBIN 11.6 GM/dL (11.7-16.9); LYMPH % 18.6 % (8-40); MCH 21.2 pg (25.7-33.7); MCHC 31.2 g/dl (32.0-35.9); MEAN PLT VOLUME 8.9 fl (7.5-11.1); MONO % 7.6 % (3.8-10.2); NEUT % 71.5 % (42.8-82.8); PLATELET COUNT 306 K/MM3 (134-434); RBC 5.47 M/mm3 (4.00-5.60); RDW 22.8 % (11.9-15.9); WHITE BLOOD COUNT 5.7 K/mm3 (4.0-10.0)
[2019-04-10 12:50] LABS: ANISOCYTOSIS 3+; MACROCYTOSIS 0; OVALOCYTE 2+; PLATELET ESTIMATE NORMAL
[2019-04-10] MEDS ORDERED: chlordiazePOXIDE HCL 25 MG CAPSULE PO ONE (13:52)
[2019-04-10] MEDS ORDERED: diazePAM 5 MG TABLET PO ONE (13:58)
[2019-04-10] MEDS ORDERED: diazePAM 5 MG TABLET ONE (14:01)
[2019-04-10] MEDS ORDERED: chlordiazePOXIDE HCL 25 MG CAPSULE ONE (14:01)
[2019-04-10 15:45] VITALS: BP 117/78; PULSE 80; TEMP 98.7
--- NOTE | 2019-04-11 14:21 | EKG ---
Test Reason : Blood Pressure : / mmHG Vent. Rate : 084 BPM Atrial Rate : 084 BPM P-R Int : 118 ms QRS Dur : 098 ms QT Int : 402 ms P-R-T Axes : 035 012 016 degrees QTc Int : 475 ms NORMAL SINUS RHYTHM NORMAL ECG WHEN COMPARED WITH ECG OF 17-JUN-2017 21:15, NO SIGNIFICANT CHANGE WAS FOUND Confirmed by Dimitrios Lopez ([id number]) on 04/11/2019 2:21:00 PM Referred By: SAMMIE MCKOY Confirmed By:Diimtrios Lopez
== END 2019-04-10 15:56 | disposition home or self-care (01) ==
LOC: FER 08:35
PROC: 3E033NZ Introduction of Analgesics, Hypnotics, Sedatives into Peripheral Vein, Percutaneous Approach (ICD-10-PCS; principal; 2019-04-10)
PROC: 3E0337Z Introduction of Electrolytic and Water Balance Substance into Peripheral Vein, Percutaneous Approach (ICD-10-PCS; 2019-04-10)
DX: F10.230 Alcohol dependence with withdrawal, uncomplicated (principal); Z87.891 Personal history of nicotine dependence; K29.70 Gastritis, unspecified, without bleeding; D64.9 Anemia, unspecified
CPT/HCPCS: 36415; 80053; 82550; 82553; 83690; 84132; 84484; 85025; 93005; 99285-25; J7030

== ENCOUNTER 2019-04-12 13:59 | Inpatient (IN) | payer OTHER ==
[2019-04-12 15:22] VITALS: BMI 27.8
--- NOTE | 2019-04-12 16:31 | HP ---
CIWA Score Nausea/Vomitin Muscle Tremors: 1-None Visible, but [place] Anxiety: 4-Mod. Anxious/Guarded Agitation: 1-Slight > Activity Paroxysmal Sweats: 3 Orientation: 2-Disoriented Date<2 days Tacttile Disturbances: 0-None Auditory Disturbances: 0-None Visual Disturbances: 2-Mild Sensitivity Headache: 3-Moderate CIWA-Ar Total Score: 19 - Admission Criteria OASAS Guidelines: Admission for Medically Managed Detox: Requires at least one of the followin. CIWA greater than 12 2. Seizures within the past 24 hours 3. Delirium tremens within the past 24 hours 4. Hallucinations within the past 24 hours 5. Acute intervention needed for co occurring medical disorder 6. Acute intervention needed for co occurring psychiatric disorder 7. Severe withdrawal that cannot be handled at a lower level of care (continued vomiting, continued diarrhea, abnormal vital signs) requiring intravenous medication and/or fluids 8. Admitting History and Physical - Past Medical History Gastrointestinal: Yes: GI Bleed Psych: Yes: Other (EtOHism) - Smoking History Smoking history: Never smoked Have you smoked in the past 12 months: No If you are a former smoker, when did you quit?: 13 YEARS - Alcohol/Substance Use Hx Alcohol Use: Yes Admission ROS [facility] - HPI Allergies/Adverse Reactions: Allergies Allergy/AdvReac Type Severity Reaction Status Date / Time No Known Allergies Allergy Verified 04/12/19 15:17 History of Present Illness: pt here requesting detox from etoh use, reports relapse since 1 week ago , was sent to ER early this a.m. due to intoxication , current DOLORES 0.281 , + blackout , denies falls , denies injuries . PMHX : anemia since age 7 , reports numerous transfusions throughout his lifetime, most recently reportedly 2 yrs ago [facility]. PShx : colon polyps , gastritis, hemorrhoids Psych : denies tobacco : denies ( quit 12 years ago ) denies illicits Exam Limitations: Clinical Condition, Intoxication - Review of Systems Constitutional: No Symptoms Reported EENT: reports: See HPI Respiratory: reports: No Symptoms reported Cardiac: reports: No Symptoms Reported GI: reports: See HPI : reports: No Symptoms Reported Musculoskeletal: reports: No Symptoms Reported Integumentary: reports: Pruritus (hien legs) Neuro: reports: See HPI Endocrine: reports: No Symptoms Reported Hematology: reports: See HPI, Anemia Psychiatric: reports: Anxious, Depressed, Disorientated Patient History - Patient Medical History Hx Anemia: Yes Hx Asthma: No Hx Chronic Obstructive Pulmonary Disease (COPD): No Hx Cancer: No Hx Cardiac Disorders: No Hx Congestive Heart Failure: No Hx Hypertension: No Hx Hypercholesterolemia: No Hx Pacemaker: No HX Cerebrovascular Accident: No Hx Seizures: No Hx Dementia: No Hx Diabetes: No Hx Gastrointestinal Disorders: No Hx Liver Disease: No Hx Genitourinary Disorders: No Hx Sexually Transmitted Disorders: No Hx Renal Disease (ESRD): No Hx Thyroid Disease: No Hx Human Immunodeficiency Virus (HIV): No Hx Hepatitis C: No Hx Depression: Yes Hx Suicide Attempt: No Hx Bipolar Disorder: No Hx Schizophrenia: No - Patient Surgical History Past Surgical History: No Hx Neurologic Surgery: No Hx Cataract Extraction: No Hx Cardiac Surgery: No Hx Lung Surgery: No Hx Breast Surgery: No Hx Breast Biopsy: No Hx Abdominal Surgery: Yes (removal of polyps in 2016) Hx Appendectomy: No Hx Cholecystectomy: No Hx Genitourinary Surgery: No Hx Section: No Hx Orthopedic Surgery: No Anesthesia Reaction: No - PPD History Previous Implant?: Yes Date: 06/19/17 - Reproductive History Patient : No - Smoking Cessation Smoking history: Never smoked Have you smoked in the past 12 months: No If you are a former smoker, when did you quit?: 13 YEARS Hx Chewing Tobacco Use: No - Substances abused Alcohol Substance route: Oral Frequency: Daily Amount used: 2-3 pints of vodka Age of first use: 16 Date of last use: 04/12/19 Admission Physical Exam [facility] - Vital Signs Vital Signs: Vital Signs - 24 hr 04/12/19 04/12/19 15:13 16:04 Temperature 97.7 F 97.7 F Pulse Rate 108 H 108 H Respiratory 20 20 Rate Blood Pressure 127/77 127/77 - Physical General Appearance: Yes: Moderate Distress, Intoxicated, Anxious HEENTM: Yes: EOMI, Hearing grossly Normal, Normocephalic, Normal Voice Respiratory: Yes: Chest Non-Tender, Lungs Clear, Normal Breath Sounds, No Respiratory Distress, No Accessory Muscle Use Neck: Yes: No masses,lesions,Nodules, Trachea in good position Cardiology: Yes: Regular Rhythm, Regular Rate, S1, S2 Abdominal: Yes: Non Tender, Soft Back: Yes: Normal Inspection Extremities: Yes: Normal Range of Motion, Non-Tender Neurological: Yes: Alert, Disoriented, Depressed Affect Integumentary: Yes: Warm - Diagnostic (1) Alcohol dependence with uncomplicated withdrawal Current Visit: Yes Status: Chronic (2) Alcohol intoxication Current Visit: Yes Status: Acute Qualifiers: Breathalyzer - Breathalyzer Breathalyzer: 0.281 Urine Drug Screen - Test Device Lot number: [id number] Expiration date: 08/13/20 - Control Is test valid?: Yes - Results Drug screen NEGATIVE: No Urine drug screen results: BZO-Benzodiazepines Inpatient Rehab Admission - Rehab Decision to Admit Inpatient rehab admission?: No
[2019-04-12] MEDS ORDERED: MENTHOL/PHENOL 1 EACH UD MM PRN (16:48)
[2019-04-12] MEDS ORDERED: MAG HYDROX/AL HYDROX/SIMETH 30 ML UNIT-DOSE CUP PO PRN (16:48)
[2019-04-12] MEDS ORDERED: BISMUTH SUBSALICYLATE 524 MG/30 ML UD PO PRN (16:48)
[2019-04-12] MEDS ORDERED: MAGNESIUM CITRATE 300 ML BOTTLE PO PRN (16:48)
[2019-04-12] MEDS ORDERED: ONDANSETRON *ODT* 4 MG TABLET SL PRN (16:48)
[2019-04-12] MEDS ORDERED: ACETAMINOPHEN 325 MG TABLET (FP) PO PRN ×2 (16:48)
[2019-04-12] MEDS ORDERED: MAGNESIUM HYDROX 2400MG/30ML ORAL SUSPENSION 30 ML CUP PO PRN (16:48)
[2019-04-12] MEDS ORDERED: hydrOXYzine PAMOATE 25 MG CAPSULE (FP) PO PRN (16:48)
[2019-04-12] MEDS ORDERED: METHOCARBAMOL 500 MG TABLET PO PRN (16:48)
[2019-04-12] MEDS ORDERED: IBUPROFEN 400 MG TABLET (FP) PO PRN (16:48)
[2019-04-12] MEDS ORDERED: LORazepam 1 MG TABLET PO PRN (16:50)
[2019-04-12] MEDS: LORazepam 2 MG TABLET PO SCH ×2 (17:53→22:27)
[2019-04-12] MEDS: THIAMINE HCL 100 MG TABLET (FP) PO SCH (22:28)
[2019-04-13] MEDS: LORazepam 2 MG TABLET PO SCH ×4 (05:34→22:12)
[2019-04-13] MEDS: PRENATAL VITAMINS W/ FOLIC ACID TABLET (FP) PO SCH (10:10)
[2019-04-13] MEDS: FERROUS SO4 325 MG TABLET (FP) PO SCH (10:10)
--- NOTE | 2019-04-13 10:22 | PN ---
S CIWA - CIWA Score Nausea/Vomitin-No Nausea/No Vomiting Muscle Tremors: 3 Anxiety: 3 Agitation: 3 Paroxysmal Sweats: 3 Orientation: 0-Oriented Tacttile Disturbances: 0-None Auditory Disturbances: 0-None Visual Disturbances: 0-None Headache: 0-None Present CIWA-Ar Total Score: 12 BHS Progress Note (SOAP) Subjective: sweats shakes body aches interrupted sleep Objective: 04/13/19 10:22 Vital Signs Temperature 98.2 F 04/13/19 09:13 Pulse Rate 90 04/13/19 09:13 Respiratory Rate 18 04/13/19 09:13 Blood Pressure 132/84 04/13/19 09:13 O2 Sat by Pulse Oximetry (%) labs pending aaox3 ambulating no acute distress Assessment: 04/13/19 10:27 withdrawals Plan: continue detox
[2019-04-13 10:26] LABS: HEMATOCRIT 34.3 % (35.4-49); HEMOGLOBIN 10.7 GM/dL (11.7-16.9); MCH 21.8 pg (25.7-33.7); MCHC 31.1 g/dl (32.0-35.9); MEAN PLT VOLUME 8.8 fl (7.5-11.1); PLATELET COUNT 193 K/MM3 (134-434); RDW 23.1 % (11.9-15.9)
[2019-04-13 10:53] LABS: ALBUMIN 3.4 g/dl (3.4-5.0); BILIRUBIN,TOTAL 1.3 mg/dL (0.2-1); BLOOD UREA NITROGEN 5.8 mg/dL (7-18); CALCIUM 8.7 mg/dL (8.5-10.1); CREATININE 0.6 mg/dL (0.55-1.3); POTASSIUM 3.1 mmol/L (3.5-5.1); TOT PROT 6.9 g/dl (6.4-8.2)
[2019-04-13] MEDS: THIAMINE HCL 100 MG TABLET (FP) PO SCH (22:11)
[2019-04-13] MEDS: MELATONIN 5 MG TABLETS PO PRN (22:12)
[2019-04-14] MEDS: LORazepam 1 MG TABLET PO SCH ×4 (06:10→22:17)
[2019-04-14] MEDS: FERROUS SO4 325 MG TABLET (FP) PO SCH ×4 (10:10→22:17)
[2019-04-14] MEDS: PRENATAL VITAMINS W/ FOLIC ACID TABLET (FP) PO SCH (10:10)
--- NOTE | 2019-04-14 11:02 | PN ---
S CIWA - CIWA Score Nausea/Vomitin-No Nausea/No Vomiting Muscle Tremors: 3 Anxiety: 2 Agitation: 2 Paroxysmal Sweats: 2 Orientation: 0-Oriented Tacttile Disturbances: 0-None Auditory Disturbances: 0-None Visual Disturbances: 0-None Headache: 0-None Present CIWA-Ar Total Score: 9 BHS Progress Note (SOAP) Subjective: sweats mild shakes anxiety Objective: 04/14/19 10:58 Vital Signs Temperature 98.8 F 04/14/19 09:24 Pulse Rate 86 04/14/19 09:24 Respiratory Rate 16 04/14/19 09:24 Blood Pressure 116/78 04/14/19 09:24 O2 Sat by Pulse Oximetry (%) Laboratory Tests 04/13/19 04/13/19 04/13/19 07:30 07:30 07:30 WBC 4.0 RBC 4.90 Hgb 10.7 L Hct 34.3 L MCV 70.0 L MCH 21.8 L MCHC 31.1 L RDW 23.1 H Plt Count 193 D MPV 8.8 Sodium 139 Potassium 3.1 L Chloride 97 L Carbon Dioxide 33 H Anion Gap 8 BUN 5.8 L Creatinine 0.6 Est GFR (CKD-EPI)AfAm 143.73 Est GFR (CKD-EPI)NonAf 124.01 Random Glucose 94 Calcium 8.7 Total Bilirubin 1.3 H AST 347 H ALT 314 H Alkaline Phosphatase 91 Total Protein 6.9 Albumin 3.4 RPR Titer Nonreactive labs noted potassium 3.1; will order kcl to replenish low H:H; iron supplement ordered tid aaox3 ambulating no acute distress Assessment: 04/14/19 11:02 withdrawals Plan: continue detox increase fluids iron supplement TID kcl [id number] q4hr x 3 doses repeat labs
[2019-04-14] MEDS: POTASSIUM CHLORIDE ORAL LIQUID 20 MEQ/15 ML PO SCH ×3 (12:20→21:05)
[2019-04-14] MEDS: THIAMINE HCL 100 MG TABLET (FP) PO SCH (22:16)
[2019-04-14] MEDS: MELATONIN 5 MG TABLETS PO PRN (22:17)
[2019-04-15] MEDS ORDERED: LORazepam 0.5 MG TABLET PO PRN
[2019-04-15] MEDS: FERROUS SO4 325 MG TABLET (FP) PO SCH (05:11)
[2019-04-15] MEDS: LORazepam 0.5 MG TABLET PO SCH ×2 (05:12→10:55)
[2019-04-15 09:51] VITALS: BP 115/74; PULSE 80; TEMP 97.7
[2019-04-15 10:12] LABS: BASO % 1.2 % (0-2.0); EOS % 9.8 % (0-4.5); HEMATOCRIT 35.5 % (35.4-49); HEMOGLOBIN 10.9 GM/dL (11.7-16.9); MCH 21.7 pg (25.7-33.7); MCHC 30.5 g/dl (32.0-35.9); MEAN PLT VOLUME 8.5 fl (7.5-11.1); MONO % 5.7 % (3.8-10.2); NEUT % 60.3 % (42.8-82.8); PLATELET COUNT 190 K/MM3 (134-434); RBC 5.01 M/mm3 (4.00-5.60)
[2019-04-15 10:26] LABS: ALBUMIN 3.4 g/dl (3.4-5.0); BILIRUBIN,TOTAL 0.6 mg/dL (0.2-1); BLOOD UREA NITROGEN 6.1 mg/dL (7-18); CALCIUM 9.4 mg/dL (8.5-10.1); CREATININE 0.6 mg/dL (0.55-1.3); POTASSIUM 4.4 mmol/L (3.5-5.1); TOT PROT 7.2 g/dl (6.4-8.2)
[2019-04-15] MEDS: PRENATAL VITAMINS W/ FOLIC ACID TABLET (FP) PO SCH (10:55)
--- NOTE | 2019-04-15 11:20 | DS ---
[facility] Detox Discharge Summary Admission Date: 04/12/19 Discharge Date: 04/15/19 - History Present History: Alcohol Dependence - Physical Exam Results Vital Signs: Vital Signs Temperature 97.7 F 04/15/19 09:50 Pulse Rate 80 04/15/19 09:50 Respiratory Rate 16 04/15/19 09:50 Blood Pressure 115/74 04/15/19 09:50 O2 Sat by Pulse Oximetry (%) Pertinent Admission Physical Exam Findings: Vital Signs Temperature 97.7 F 04/15/19 09:50 Pulse Rate 80 04/15/19 09:50 Respiratory Rate 16 04/15/19 09:50 Blood Pressure 115/74 04/15/19 09:50 O2 Sat by Pulse Oximetry (%) Laboratory Tests 04/13/19 04/13/19 04/13/19 07:30 07:30 07:30 WBC 4.0 RBC 4.90 Hgb 10.7 L Hct 34.3 L MCV 70.0 L MCH 21.8 L MCHC 31.1 L RDW 23.1 H Plt Count 193 D MPV 8.8 Absolute Neuts (auto) Neutrophils % Lymphocytes % Monocytes % Eosinophils % Basophils % Nucleated RBC % Sodium 139 Potassium 3.1 L Chloride 97 L Carbon Dioxide 33 H Anion Gap 8 BUN 5.8 L Creatinine 0.6 Est GFR (CKD-EPI)AfAm 143.73 Est GFR (CKD-EPI)NonAf 124.01 Random Glucose 94 Calcium 8.7 Total Bilirubin 1.3 H AST 347 H ALT 314 H Alkaline Phosphatase 91 Total Protein 6.9 Albumin 3.4 RPR Titer Nonreactive 04/15/19 04/15/19 08:30 08:30 WBC 5.0 RBC 5.01 Hgb 10.9 L Hct 35.5 MCV 71.0 L MCH 21.7 L MCHC 30.5 L RDW 24.0 H Plt Count 190 MPV 8.5 Absolute Neuts (auto) 3.0 Neutrophils % 60.3 Lymphocytes % 23.0 D Monocytes % 5.7 Eosinophils % 9.8 H D Basophils % 1.2 Nucleated RBC % 0 Sodium 139 Potassium 4.4 Chloride 107 Carbon Dioxide 26 Anion Gap 6 L BUN 6.1 L Creatinine 0.6 Est GFR (CKD-EPI)AfAm 143.73 Est GFR (CKD-EPI)NonAf 124.01 Random Glucose 89 Calcium 9.4 Total Bilirubin 0.6 AST 681 H ALT 648 H Alkaline Phosphatase 110 Total Protein 7.2 Albumin 3.4 RPR Titer aaox3 ambulating no acute distress - Treatment Hospital Course: Detox Protocol Followed, Detoxed Safely, Responded well, Discharged Condition Good, Rehab Referral Accepted - Medication Discharge Medications: Ambulatory Orders Ferrous Sulfate [Feosol] 325 mg PO DAILY 02/14/19 - Diagnosis (1) Alcohol dependence with uncomplicated withdrawal Current Visit: Yes Status: Chronic (2) Hypokalemia Current Visit: No Status: Acute (3) Patient left before evaluation by physician Current Visit: Yes Status: Chronic (4) Anemia Current Visit: No Status: Chronic Qualifiers: Anemia type: iron deficiency Iron deficiency anemia type: inadequate dietary iron intake Qualified Code(s): D50.8 - Other iron deficiency anemias (5) Depression (emotion) Current Visit: No Status: Chronic Qualifiers: Depression Type: dysthymia Qualified Code(s): F34.1 - Dysthymic disorder (6) GERD (gastroesophageal reflux disease) Current Visit: Yes Status: Chronic Qualifiers: Esophagitis presence: without esophagitis Qualified Code(s): K21.9 - Gastro -esophageal reflux disease without esophagitis - AMA Did Patient Leave Against Medical Advice: No
[2019-04-15 12:00] LABS: ANISOCYTOSIS 1+; MACROCYTOSIS 0; PLATELET ESTIMATE NORMAL
[2019-04-16] MEDS ORDERED: LORazepam 0.5 MG TABLET PO ONE (05:00)
== END 2019-04-15 12:25 | disposition home or self-care (01) | DRG 897 ==
LOC: YASAS 13:59 → Y6N 17:16
PROVIDERS: ADMIT Allergy & Immunology; ATTEND Allergy & Immunology
PROC: HZ2ZZZZ Detoxification Services for Substance Abuse Treatment (ICD-10-PCS; principal; 2019-04-12)
DX: F10.230 Alcohol dependence with withdrawal, uncomplicated (principal); F34.1 Dysthymic disorder; E87.6 Hypokalemia; K21.9 Gastro-esophageal reflux disease without esophagitis; D50.8 Other iron deficiency anemias; Z87.19 Personal history of other diseases of the digestive system; Z87.891 Personal history of nicotine dependence
CPT/HCPCS: 36415; 80053; 85025; 85027; 86593

== ENCOUNTER 2021-05-13 10:39 | Day surgery (SDC) | payer OTHER ==
[2021-05-09 13:00] VITALS: BMI 30.1
[2021-05-13 11:59] VITALS: BP 118/70; PULSE 61; TEMP 98.1
== END 2021-05-13 12:40 | disposition home or self-care (01) ==
LOC: FASU-ENDO 10:39
PROVIDERS: ATTEND Internal Medicine Gastroenterology
PROC: 0DJD8ZZ Inspection of Lower Intestinal Tract, Via Natural or Artificial Opening Endoscopic (ICD-10-PCS; principal; 2021-05-13 11:18)
DX: Z86.010 Personal history of colon polyps (principal); K57.30 Diverticulosis of large intestine without perforation or abscess without bleeding